=== PATIENT | female | born 1970 | race Caucasian/White ===

== ENCOUNTER 2025-02-22 11:56 | Outpatient (REF) | payer MEDICARE, MEDICAID, SELFPAY ==
--- OUTSIDE RECORDS SUMMARY | 2025-02-22 11:00 | XMS_ITS | Encounter Summary ---
Author Organization [facility] Address [address] 7[address] [place] [address] Care Team Providers Care Geodetic Computator Name Role Phone Martin Burch MD Primary Care Provider [phone] Reason for Referral * Imaging (Routine) - Pending Review Specialty Diagnoses / Procedures Referred By Contac t Referred To Contact Radiology Diagnoses Axillary mass, right Procedures BI US Breast Limited Right Martin Burch MD [address] [place] [address] Phone: tel: fax: [address] Phone: tel: fax: Referral ID Status Reason Start Date Expiration Date V isits Requested Visits Authorized [id number] Pending Review 02/22/2025 02/22/2026 1 1 * Imaging (Routine) - Pending Review Specialty Diagnoses / Procedures Referred By Contac t Referred To Contact Radiology Diagnoses Axillary mass, right Procedures BI Mammogram Diagnostic Tomosynthesis Bilateral Martin Burch MD [address] [place] [address] Phone: tel: fax: [address] Phone: tel: fax: Referral ID Status Reason Start Date Expiration Date V isits Requested Visits Authorized [id number] Pending Review 02/22/2025 02/22/2026 1 1 Reason for Visit * Reason Comments New patient visit Encounter Details Date Type Department Care Team (Late st Contact Info) Description 02/22/2025 11:00 AM EDT Office Visit [facility] [address] [place] [address] Name, MD Martin [address] [place] [address] Axillary mass, right (Primary Dx); Intellectual disability; Seizure disorder (CMS/HCC); Elevated blood pressure reading Social History Tobacco Use Types Packs/Day Years Used Date Smoking Tobacco: Never Smokeless Tobacco: Never Alcohol Use Standard Drinks/Week Comments Never 0 (1 standard drink = 0.6 oz pur e alcohol) Comments Unknown Sex and Gender Information Value Date Recorded Sex Assigned at Female 02/22/2025 10:57 AM EDT Legal Sex Female 10:53 AM EDT Gender Identity Female 02/22/2025 10:57 AM EDT Sexual Orientation Straight 02/22/2025 10 :57 AM EDT documented as of this encounter Last Filed Vital Signs Vital Sign Reading Time Taken Comments Blood Pressure 139/92 02/22/2025 11:18 AM EDT Pulse 76 02/22/2025 11:07 AM EDT Temperature 36.1 C (96.9 F) 02/22/2025 11:07 AM EDT Respiratory Rate 14 02/22/2025 11:07 AM EDT Oxygen Saturation 98% 02/22/2025 11:07 AM EDT Inhaled Oxygen Concentration - - Weight 92.6 kg (204 lb 3.2 oz) 02/22/2025 11:07 AM EDT Height 165.1 cm (5' 5 ) 02/22/2025 11:07 AM EDT Body Mass Index 33.98 02/22/2025 11:07 AM EDT documented in this encounter Progress Notes * Martin Burch MD - 02/22/2025 11:00 AM EDT Images from the original note were not included. Subjective Patient ID: Maria M Khalil is a 54 y.o. female who presents for New patient visit. Patient comes for the first time to the clinic. She is accompanied by her sister (Hanna Ruiz). She recently arrived from [place]. Patient has a past medical history of intellectual disability and seizure disorder. History is obtained from the sister. The patient depends on her family for all IADLs, she needs help with dressing and bathing, she is independent for eating, she is continent of urine and stool. The patient will be living with her sister from now on after her mother passed awayin [place]. She is currently treated with carbamazepine and phenobarbital for seizure disorder.Her sister explains to me that her seizures are very well-controlled on this medication regimen andshe has been seizure-free for several years. Today the patient blood pressure was initially elevated. Repeat blood pressure was much better. Her sister explains to me that patient has a right axillary mass for several years. This mass was diagnosed as a lipoma in [place] but she does not know what type of workup she had done. We do not have any information of recent mammograms We do not have any medical records Sister does not think patient had any surgeries in the past Review of Systems Constitutional: Negative for chills and fever. HENT: Negative for sore throat. Respiratory: Negative for cough, shortness of breath and wheezing. Cardiovascular: Negative for chest pain, palpitations and leg swelling. Gastrointestinal: Negative for abdominal pain. Neurological: See HPI Objective Vitals: 02/22/25 1107 02/22/25 1118 BP: (!) 153/104 (!) 139/92 BP Location: Left arm Patient Position: Sitting BP Cuff Size: Large adult Pulse: 76 Resp: 14 Temp: 96.9 ??F (36.1 ??C) TempSrc: Temporal SpO2: 98% Weight: 204 lb 3.2 oz (92.6 kg) Height: 5' 5 (1.651 m) Physical Exam Exam conducted with a project archivist present. Constitutional: Appearance: Normal appearance. Cardiovascular: Rate and Rhythm: Normal rate and regular rhythm. Heart sounds: No murmur heard. No gallop. Pulmonary: Effort: Pulmonary effort is normal. No respiratory distress. Breath sounds: Normal breath sounds. No wheezing. Chest: Breasts: Right: No swelling, bleeding, inverted nipple, mass, nipple discharge, skin change or tenderness. Left: No swelling, bleeding, inverted nipple, mass, nipple discharge, skin change or tenderness. Comments: Patient has right axillary soft mass on exam today about 2 inches in diameter Musculoskeletal: Right lower leg: No edema. Left lower leg: No edema. Neurological: Mental Status: She is alert. Mental status is at baseline. Motor: No weakness. Gait: Gait normal. Assessment/Plan Diagnoses and all orders for this visit: Axillary mass, right Comments: Lipoma?. I will send her for mammogram and ultrasound for evaluation. Further recommendation based on the results Orders: - BI Mammogram Diagnostic Tomosynthesis Bilateral; Future - BI US Breast Limited Right; Future Intellectual disability Comments: She has adequate level of supervision at home with her sister Seizure disorder (CMS/HCC) Comments: Continue current meds and check blood work listed below Sister will call when she needs refills We will also give her a new patient appt with me Orders: - CBC auto differential; Future - Comprehensive Metabolic Panel; Future - Carbamazepine, Total; Future - Phenobarbital; Future Elevated blood pressure reading Comments: Repeat BP is better. I did not recommend any meds for HTN for now Other orders - PHENobarbital 100 MG tablet; Take 1 tablet (100 mg) by mouth at bedtime. - carBAMazepine (TEGretol) 200 MG tablet; Take 1 tablet (200 mg) by mouth 3 times daily. Future Appointments Date Time Provider Department Center 04/12/2025 11:30 AM Martin Burch MD MEDICINE [facility] documented in this encounter Plan of Treatment Upcoming Encounters Date Type Department Care Team (Late st Contact Info) Description 04/12/2025 11:30 AM EDT Office Visit [facility] [address] [place] [address] Martin Burch MD [address] [place] [address] Scheduled Orders Name Type Priority Associated Diagnoses Orde r Schedule CBC auto differential Lab Routine Seizure disorder (CMS/HCC) Expected: 02/22/2025 (Approximate), Expires: 02/22/2026 Comprehensive Metabolic Panel Lab Routine Seizure disorder (CMS/HCC) Expected: 02/22/2025 (Approximate), Expires: 02/22/2026 Carbamazepine, Total Lab Routine Seizure disorder (CMS/HCC) Expected: 02/22/2025 (Approximate), Expires: 02/22/2026 Phenobarbital Lab Routine Seizure disorder (CMS/HCC) Expected: 02/22/2025 (Approximate), Expires: 02/22/2026 BI Mammogram Diagnostic Tomosynthesis Bilateral Imaging Routine Axillary mass, right Expected: 02/22/2025, Expires: 04/24/2026 BI US Breast Limited Right Imaging Routine Axillary mass, right Expected: 02/22/2025, Expires: 02/22/2026 documented as of this encounter Visit Diagnoses Diagnosis Axillary mass, right- Primary Intellectual disability Unspecified mental retardation Seizure disorder (CMS/HCC) Unspecified epilepsy without mention of intractable epilepsy Elevated blood pressure reading Elevated blood pressure reading without diagnosis of hypertension documented in this encounter Care Teams Geodetic Computator Relationship Specialty Start Date End Date Name, MD Martin [address] [place] [address] PCP - General Internal Medicine 02/22/25 documented as of this encounter
[2025-02-22 13:20] LABS: MANUAL DIFF FLAG NO
--- OUTSIDE RECORDS SUMMARY | 2025-02-22 13:21 | XMS_ITS | Clinical Summary ---
Author Organization [employer] Address [address] 7t [place] [address] Care Team Providers Care Biomedical Service Engineer Name Role Phone Name, Martin WHITMORE Primary Care Provider [phone] Allergies No known active allergies Medications PHENobarbital 100 MG tablet Take 1 tablet (100 mg) by mouth at bedtime. 02/22/2025 5 Active carBAMazepine (TEGretol) 200 MG tablet Take 1 tablet (200 mg) by mouth 3 times daily. 02/22/2025 6 Active Active Problems Problem Noted Date Diagnosed Date Intellectual disability 02/22/2025 Seizure disorder 02/22/2025 Encounters Date Type Department Care Team Description 02/22/2025 11:00 AM EDT Office Visit [facility] [address] [place] [address] Name, MD Martin Axillary mass, right (Primary Dx); Intellectual disability; Seizure disorder (CMS/HCC); Elevated blood pressure reading 02/22/2025 Travel from Last 3 Months Social History Tobacco Use Types Packs/Day Years [...] Orientation Straight 02/22/2025 10 :57 AM EDT Last Filed Vital Signs Vital Sign Reading [...] Mass Index 33.98 02/22/2025 11:07 AM EDT Plan of Treatment Upcoming Encounters Date Type Department Care Team (Late st Contact Info) Description 04/12/2025 11:30 AM EDT Office Visit [facility] MEDIC[facility] [address] [place] [address] Name, MD Martin [address] [place] [address] Health Maintenance Due Date Last Done Comments CT Colonography 1971 Colonoscopy 1971 Colorectal Cancer Screening 1971 Depression Screening 1971 FIT DNA/Cologuard 1971 FIT 1971 FOBT 1971 HIV Screening 1971 SDOH Screening 1971 Sigmoidoscopy 1971 Disability Screening 1971 Alcohol/Substance Use Screening 1983 Hepatitis C Screening 1989 DTaP/Tdap/Td Vaccines (1 - Tdap) 1990 Hepatitis B Vaccines (1 of 3 - 19+ 3-dose series) 1990 Pap Smear 1992 Cervical Cancer Screening 2001 HPV/Cotest 2001 Mammogram 2011 Pneumococcal Vaccine: 50+ Ye ars (1 of 1 - PCV) 2021 Zoster Vaccines (1 of 2) 2021 COVID-19 Vaccine (1 - 2023-2 5 season) 2025 Influenza Vaccine (#1) 2025 Tobacco Screening 02/22/2026 02/22/2025 RSV Patients and Pa tients Aged 60 years or older (1 - 1-dose 75+ series) 2046 HIB Vaccines Aged Out No longer eligi ble based on patient's age to complete this topic HPV Vaccines Aged Out No longer eligi ble based on patient's age to complete this topic Hepatitis A Vaccines Aged Out No long er eligible based on patient's age to complete this topic IPV Vaccines Aged Out No longer eligi ble based on patient's age to complete this topic Meningococcal B Vaccine Aged Out No l onger eligible based on patient's age to complete this topic Meningococcal Vaccine Aged Out No josh maciej eligible based on patient's age to complete this topic RSV under 20 months Aged Out No longe r eligible based on patient's age to complete this topic Rotavirus Vaccines Aged Out No longer eligible based on patient's age to complete this topic Insurance [facility] Care Teams Biomedical Service Engineer Relationship Specialty Start Date End Date Name, MD Martin [address] [place] [address] PCP - General Internal Medicine 02/22/25
--- OUTSIDE RECORDS SUMMARY | 2025-02-22 13:21 | XMS_ITS | Encounter Summary ---
Author Organization [facility] [facility] Address [address] [facility] 7t [place] [address] Care Team Providers Care Construction Administrator Name Role Phone Name, Martin WHITMORE Primary Care Provider [phone] Encounter Details Date Type Department Care Team (Latest Contact Info) Description 02/22/2025 Travel Social History Tobacco Use Types Packs/Day Years [...] AM EDT documented as of this encounter Plan of Treatment Upcoming Encounters Date Type Department Care Team (Late st Contact Info) Description 04/12/2025 11:30 AM EDT Office Visit [facility] [address] [place] [address] Name, MD Martni [address] [place] [address] documented as of this encounter Visit Diagnoses Not on filedocumented in this encounter Care Teams Construction Administrator Relationship Specialty Start Date End Date Name, MD Martin [address] [place] [address] PCP - General Internal Medicine 02/22/25 documented as of this encounter
[2025-02-22 13:27] LABS: Hematocrit 42.5 % (37.0-47.0); Hemoglobin 14.0 g/dl (12.0-16.0); Imm Gran Abs Auto 0.03 X10*3/uL (0.00-0.03); Imm Gran Pct Auto 0.4 % (0.0-0.4); Lymphocytes Absolute Auto 1.3 X10*3/uL (1.2-4.9); Mean Corpuscular HGB Conc 32.9 g/dl (31.0-35.0); Mean Corpuscular Hemoglobin 32.4 pg (27.0-33.0); Mean Corpuscular Volume 98.4 fL (80.0-98.0); NRBC Abs Auto 0.000 X10*3/uL (0.0-0.012); NRBC Pct Auto 0.0 /100WBC (0.0-0.2); Platelet Count 223 X10*3/uL (160-400); Red Blood Count 4.32 X10*6/uL (4.20-5.50); White Blood Count 7.5 X10*3/uL (4.8-10.8)
[2025-02-22 13:54] LABS: Carbamazepine Tegretol 8.1 mcg/mL (5.0-12.0)
[2025-02-22 14:45] LABS: Alanine Aminotransferase 19 U/L (0-31); Albumin Level 4.0 g/dL (3.5-5.0); Alkaline Phosphatase 89 U/L (39-117); Anion Gap 11 (12-20); Aspartate Amino Transferase 25 U/L (5-31); Blood Urea Nitrogen 11 mg/dL (9-16); Calcium 8.7 mg/dL (8.4-10.2); Carbon Dioxide 29 mmol/L (22-29); Chloride 102 mmol/L (96-108); Estimated Glomerular Filt Rate > 60; Potassium 4.4 mmol/L (3.3-5.1); Sodium 138 mmol/L (135-145); Total Protein 7.3 g/dL (6.5-8.0)
== END 2025-02-22 11:57 | disposition home or self-care (01) ==
LOC: HO.HHCL 11:56
PROVIDERS: PCP Internal Medicine Geriatric Medicine; Visit Provider Internal Medicine Geriatric Medicine
DX: G40.909 Epilepsy, unspecified, not intractable, without status epilepticus (principal)
CPT/HCPCS: 36415; 80053; 80156; 80184; 85025

== ENCOUNTER 2025-02-25 09:33 | Outpatient (REF) | payer MEDICAID, SELFPAY ==
--- OUTSIDE RECORDS SUMMARY | 2025-02-22 11:00 | XMS_ITS | Encounter Summary ---
Author Organization [employer] Address [address] [facility] 7t [place] [address] Care Team Providers Care Detail Assembler Name Role Phone Martin Burch MD Primary Care Provider [phone] Reason for Referral * Imaging (Routine) - Authorized Specialty Diagnoses / Procedures Referred By Contac t Referred To Contact Radiology Diagnoses Axillary mass, right Procedures BI US Breast Limited Right Martin Burch MD [address] [place] [address] Phone: tel: fax: [address] Phone: tel: fax: Referral ID Status Reason Start Date Expiration Date V isits Requested Visits Authorized [id number] Authorized 02/22/2025 02/22/2026 1 1 * Imaging (Routine) - Authorized Specialty Diagnoses / Procedures Referred By Contac t Referred To Contact Radiology Diagnoses Axillary mass, right Procedures BI Mammogram Diagnostic Tomosynthesis Bilateral Martin Burch MD [address] [place] [address] Phone: tel: fax: [address] Phone: tel: fax: Referral ID Status Reason Start Date Expiration Date V isits Requested Visits Authorized [id number] Authorized 02/22/2025 02/22/2026 1 1 Reason for Visit * Reason Comments New patient visit Encounter Details Date Type Department Care Team (Late st Contact Info) Description 02/22/2025 11:00 AM EDT Office Visit [facility] [address] [place] [address] Name, MD Martin [address] [place] [address] Axillary mass, right (Primary Dx); Intellectual disability; [...] sister (Hanna Ruiz). She recently arrived from [place]. Patient has a past medical history of intellectual disability and seizure disorder. History is obtained from the sister. The patient depends on her family for all IADLs, she needs help with dressing and bathing, she is independent for eating, she is continent of urine and stool. The patient will be living with her sister from now on after her mother passed awayin [place]. She is currently treated with carbamazepine and [...] mass was diagnosed as a lipoma in [place] but she does not know what type [...] m) Physical Exam Exam conducted with a center machine set up operator present. Constitutional: Appearance: Normal appearance. Cardiovascular: Rate [...] at home with her sister Seizure disorder ([facility]) Comments: Continue current meds and check blood [...] 04/12/2025 11:30 AM Martin Burch MD MEDICINE [facility] documented in this encounter Plan of Treatment Upcoming Encounters Date Type Department Care Team (Late st Contact Info) Description 04/12/2025 11:30 AM EDT Office Visit [facility] MEDICINE [address] [place] [address] Martni Burch MD [address] [place] [address] Scheduled Orders Name Type Priority Associated Diagnoses Orde r Schedule BI Mammogram Diagnostic Tomosynthesis Bilateral Imaging Routine Axillary mass, right Expected: 02/22/2025, Expires: 04/24/2026 BI US Breast Limited Right Imaging Routine Axillary mass, right Expected: 02/22/2025, Expires: 02/22/2026 documented as of this encounter Procedures Procedure Name Priority Date/Time Associated Diagnosis Comments CBC WITH AUTO DIFFERENTIAL Routine 02/22/2025 12:25 PM EDT Seizure disorder (CMS/HCC) PHENOBARBITAL Routine 02/22/2025 12:25 PM EDT Seizure disorder (CMS/HCC) CARBAMAZEPINE, TOTAL Routine 02/22/2025 12:25 PM EDT Seizure disorder (CMS/HCC) COMPREHENSIVE METABOLIC PANEL Routine 02/22/2025 12:25 PM EDT Seizure disorder (CMS/HCC) documented in this encounter Results * Phenobarbital (02/22/2025 12:25 PM EDT) Phenobarbital 22.3 10.0 - 40.0 mcg/mL [facility] Blood Venous blood specimen / Unknown 02/22/2025 12:25 PM EDT 02/22/2025 12:47 PM EDT us Martin Burch MD LAB BLOOD ORDERABLES Final Resul t Performing Organization Address City/[facility]/ZIP Co de Phone Number [facility] [address] [place] [address] [phone] * Carbamazepine, Total (02/22/2025 12:25 PM EDT) Carbamazepine Tegretol 8.1 5.0 - 12.0 mcg/mL [facility] Blood Venous blood specimen / Unknown 02/22/2025 12:25 PM EDT 02/22/2025 12:47 PM EDT us Martin Burch MD LAB BLOOD ORDERABLES Final Resul t Performing Organization Address City/[facility]/ZIP Co de Phone Number [facility] [address] [place] [phone] * (ABNORMAL) Comprehensive Metabolic Panel (02/22/2025 12:25 PM EDT) Sodium 138 135 - 145 mmol/L [facility] Potassium 4.4 3.3 - 5.1 mmol/L [facility] Chloride 102 96 - 108 mmol/L [facility] Carbon Dioxide 29 22 - 29 mmol/L [facility] Anion Gap 11(L) 12 - 20 [facility] Urea Nitrogen (BUN) 11 9 - 16 mg/dL [facility] Creatinine, Serum 0.70 0.5 - 1.4 mg/dL [facility] Estimated Glomerular Filt Rate >60 [facility] Comment:Chronic Kidney Disea se: Estimated GFR < 60 mL/min/1.33k9Tlmbbb Kidney Disease: Estimated GFR < 15 mL/min/1.73m2 Glucose 100 60 - 115 mg/dL [facility] Calcium 8.7 8.4 - 10.2 mg/dL [facility] Bilirubin, Total 0.2 0.0 - 1.0 mg/dL [facility] Aspartate Amino Transferase 25 5 - 31 U/L [facility] Alanine Aminotransferase 19 0 - 31 U/L [facility] Total Protein 7.3 6.5 - 8.0 g/dL [facility] Albumin Level 4.0 3.5 - 5.0 g/dL [facility] Alkaline Phosphatase 89 39 - 117 U/L [facility] Blood Venous blood specimen / Unknown 02/22/2025 12:25 PM EDT 02/22/2025 1:18 PM EDT us Martin Name LAB BLOOD ORDERABLES Final Resul t [facility] [address] [place] [phone] * (ABNORMAL) CBC auto differential (02/22/2025 12:25 PM EDT) Pathologist [facility] White Blood Count 7.5 4.8 - 10.8 X10*3/uL [facility] Red Blood Count 4.32 4.20 - 5.50 X10*6/uL [facility] Hemoglobin 14.0 12.0 - 16.0 g/dl [facility] Hematocrit 42.5 37.0 - 47.0 % [facility] Mean Corpuscular Volume 98.4(H) 80.0 - 98.0 fL [facility] Mean Corpuscular Hemoglobin 32.4 27.0 - 33.0 pg [facility] Mean Corpuscular HGB Conc 32.9 31.0 - 35.0 g/dl [facility] Red Cell Distribution Width 12.8 11.0 - 16.0 % [facility] Platelet Count 223 160 - 400 X10*3/uL [facility] Mean Platelet Volume 11.1 9.4 - 12.3 fL [facility] Neutrophils Percent Auto 74.9(H) 45 - 73 % [facility] Imm Gran Pct Auto 0.4 0.0 - 0.4 % [facility] Lymphocytes Percent Auto 17.3(L) 20 - 40 % [facility] Monocytes Percent Auto 7.3 2 - 11 % [facility] Eosinophils Percent Auto 0.0 0 - 4 % [facility] Basophils Percent Auto 0.1 0 - 2 % [facility] NRBC Pct Auto 0.0 0.0 - 0.2 /100WBC [facility] Neutrophils Absolute Auto 5.6 2.0 - 8.3 x10*3/uL [facility] Imm Gran Abs Auto 0.03 0.00 - 0.03 X10*3/uL [facility] Lymphocytes Absolute Auto 1.3 1.2 - 4.9 X10*3/uL [facility] Monocytes Absolute Auto 0.6 0.1 - 1.2 X10*3/uL [facility] Eosinophils Absolute Auto 0.0 0.0 - 0.4 X10*3/uL [facility] Basophils Absolute Auto 0.0 0.0 - 0.2 X10*3/uL [facility] NRBC Abs Auto 0.000 0.0 - 0.012 X10*3/uL [facility] Blood Venous blood specimen / Unknown 02/22/2025 12:25 PM EDT 02/22/2025 1:17 PM EDT Martin Burch MD LAB BLOOD ORDERABLES Final Resul t [facility] [address] [place] [phone] documented in this encounter Visit Diagnoses Diagnosis Axillary mass, right- Primary Intellectual disability Unspecified mental retardation Seizure disorder (CMS/HCC) Unspecified epilepsy without mention of intractable epilepsy Elevated blood pressure reading Elevated blood pressure reading without diagnosis of hypertension documented in this encounter Care Teams Detail Assembler Relationship Specialty Start Date End Date Name, MD Martin [address] [place] [address] PCP - General Internal Medicine 02/22/25 documented as of this encounter
--- NOTE | ~2025-02-25 | MM_ITS ---
EXAMINATION (S): 1. MM DIAGNOSTIC DIGITAL BREAST TOMOSYNTHESIS, BILATERAL 2. US BREAST LIMITED RIGHT CLINICAL INFORMATION: Right axillary mass COMPARISON: None. This is a baseline study. TECHNIQUE: Digital breast tomosynthesis is performed in both the mediolateral oblique and craniocaudal views along with computer-aided detection (CAD). Synthesized 2D images are generated from the tomosynthesis. Spot compression tomosynthesis images were also obtained. BB marker and a triangular skin marker were placed in the right axilla, indicating the location of the lump/pain as directed by the patient. FINDINGS: BREAST COMPOSITION: There are scattered areas of fibroglandular density (ACR BI-RADS breast composition Category b). RIGHT BREAST: Focal asymmetry in the subareolar region is pliable with spot compression. No significant masses or suspicious calcifications are seen. In particular, no suspicious mammographic findings adjacent to the skin markers in the right axilla. Targeted ultrasound of the right breast was performed at the location of the palpable concern in the axilla. No suspicious mammographic is seen during the survey. Targeted ultrasound of the right breast was performed at the location of the mammographic finding. The survey throughout the 4:00-8:00 axis did not reveal suspicious sonographic findings. LEFT BREAST: No significant masses, suspicious calcifications or other abnormalities are seen. MM/MM tomosynthesis diagnostic BI IMPRESSION: RIGHT BREAST: Negative, no evidence of malignancy. In particular, no suspicious mammographic or sonographic findings to accounts for patient's palpable concern in the right axilla. Clinical follow-up is recommended. Otherwise, normal interval follow-up mammogram is recommended in 12 months. LEFT BREAST: Negative, no mammographic evidence of malignancy. Normal interval follow-up is recommended in 12 months. ASSESSMENT: BI-RADS 0 - Incomplete: Needs additional Imaging. RECOMMENDATION: 1. Patient should be managed based on the clinical impression. 2. Otherwise, routine annual screening mammography. Results were provided to the patient at time of visit by the technologist. This patient's information was entered into a reminder system with a target due date for their next mammogram. Electronically signed by: Charli Henderson MD 02/25/2025 01:15 PM EDT
--- OUTSIDE RECORDS SUMMARY | 2025-02-25 10:14 | XMS_ITS | Encounter Summary ---
Author Organization [employer] Address [address] [facility] 7t [place] [address] Care Team Providers Care Asbestos Abatement Worker Name Role Phone Name, Martin WHITMORE Primary Care Provider [phone] Encounter Details Date Type Department Care Team [...] Description 04/12/2025 11:30 AM EDT Office Visit [facility] MEDICINE [address] [place] [address] NameMartin MD [address] [place] [address] documented as of this encounter Visit Diagnoses Not on filedocumented in this encounter Care Teams Asbestos Abatement Worker Relationship Specialty Start Date End Date Martin Burch MD [address] [place] [address] PCP - General Internal Medicine 02/22/25 documented as of this encounter
--- OUTSIDE RECORDS SUMMARY | 2025-02-25 10:14 | XMS_ITS | Encounter Summary ---
Author Organization [employer] Address [address] [place] [address] Care Team Providers Care Residential Roofer Name Role Phone Name, Martin WHITMORE Primary Care Provider [phone] Reason for Visit * Reason Onset Date Comments requesting call back 02/23/2025 Med Refill 02/23/2025 Pt requesting me ds to be sent to [facility] pharmacy phenobarbital and tegretol. Pt went to pharmacy to see if meds were ready theres no medications in the pharmacy Encounter Details Date Type Department Care Team (Late st Contact Info) Description 02/23/2025 Refill [facility] MEDICINE [address] [place], [place] [phone] Name, MD Martin [address] [place] [address] Social History Tobacco Use Types Packs/Day Years [...] AM EDT documented as of this encounter Miscellaneous Notes * Telephone Encounter - Crystal Parkinson RN - 02/24/2025 10:46 AM EDT Pt arrived to help desk engineer to let them know the script that was sent by PCP was not received by [facility] pharmacy. They're requesting for the PCP to resend the script again. Tc to pt via BLS ID: [id number], no answer, lvm to return call and ask to speak to blue team nurses. Tc to pt without mosaic layer services pt sister answered, requesting an mosaic layer, namibian translation assisted by PCP HUEY Miramontes [place]. PCP okay with prescribing a 30 day supply to pt until they're seen for their FOOD MIXER appt withPCP on 04/12/25. Medications pended to PCP for review. * Telephone Encounter - Leanne Marsh - 02/24/2025 9:10 AM EDT Pt requesting meds to be sent to [facility] pharmacy phenobarbital and tegretol. Pt went to pharmacy to see if meds were ready theres no medications in the pharmacy * Telephone Encounter - Martin Holland - 02/23/2025 3:01 PM EDT Tc from pt reporting that she had a missed call from [facility]. Pt does not know who. Contact pt at [phone] documented in this encounter Plan of Treatment Upcoming Encounters Date Type Department Care Team (Late st Contact Info) Description 04/12/2025 11:30 AM EDT Office Visit [facility] MEDICINE [address] [place] [phone] Name, MD Martin [address] [place] [address] documented as of this encounter Visit Diagnoses Not on filedocumented in this encounter Care Teams Residential Roofer Relationship Specialty Start Date End Date NameMartin MD [address] [place] [phone] PCP - General Internal Medicine 02/22/25 documented as of this encounter
--- OUTSIDE RECORDS SUMMARY | 2025-02-25 10:15 | XMS_ITS | Clinical Summary ---
Author Organization [employer] Address [address] [facility] [address] [place] [address] Care Team Providers Care Banquet Server Name Role Phone Name, Martin WHITMORE Primary Care Provider [phone] Allergies No known active allergies Medications carBAMazepine (TEGretol) 200 MG tablet Take 1 tablet (200 mg) by mouth 3 times daily. 90 tablet 5 025 Active PHENobarbital 100 MG tablet Take 1 tablet (100 mg) by mouth at bedtime. 30 tablet 5 025 Active PHENobarbital 100 MG tablet Take 1 tablet (100 mg) by mouth at bedtime. 5 025 Discontinued(Re order (will not trigger notification to Pharmacy)) carBAMazepine (TEGretol) 200 MG tablet Take 1 tablet (200 mg) by mouth 3 times daily. 5 025 Discontinued(Re order (will not trigger notification to Pharmacy)) Active Problems Problem Noted Date Diagnosed Date Intellectual disability 02/22/2025 Seizure disorder 02/22/2025 Encounters Date Type Department Care Team Description 02/23/[address] [facility] [address] [place] [address] NameMartin MD 02/22/2025 11:00 AM EDT Office Visit [facility] [address] [place], [place] [phone] NameMartin MD Axillary mass, right (Primary Dx); Intellectual disability; [...] Description 04/12/2025 11:30 AM EDT Office Visit [facility] [address] [place] [phone] Name, MD Martin [address] [place] [phone] Health Maintenance Due Date Last Done Comments [...] on patient's age to complete this topic Procedures Procedure Name Priority Date/Time Associated Diagnosis Comments PHENOBARBITAL Routine 02/22/2025 12:25 PM EDT Seizure disorder (CMS/HCC) CARBAMAZEPINE, TOTAL Routine 02/22/2025 12:25 PM EDT Seizure disorder (CMS/HCC) COMPREHENSIVE METABOLIC PANEL Routine 02/22/2025 12:25 PM EDT Seizure disorder (CMS/HCC) CBC WITH AUTO DIFFERENTIAL Routine 02/22/2025 12:25 PM EDT Seizure disorder (CMS/HCC) from Last 3 Months Results * (ABNORMAL) CBC auto differential (02/22/2025 12:25 PM EDT) White Blood Count 7.5 4.8 - 10.8 X10*3/uL [facility] Red Blood Count 4.32 4.20 - 5.50 X10*6/uL [facility] Hemoglobin 14.0 12.0 - 16.0 g/dl [facility] Hematocrit 42.5 37.0 - 47.0 % [facility] Mean Corpuscular Volume 98.4(H) 80.0 - 98.0 fL [facility] Mean Corpuscular Hemoglobin 32.4 27.0 - 33.0 pg [facility] Mean Corpuscular HGB Conc 32.9 31.0 - 35.0 g/dl [facility] Red Cell Distribution Width 12.8 11.0 - 16.0 % [facility] Platelet Count 223 160 - 400 X10*3/uL [facility] Mean Platelet Volume 11.1 9.4 - 12.3 fL [facility] Neutrophils Percent Auto 74.9(H) 45 - 73 % [facility] Imm Gran Pct Auto 0.4 0.0 - 0.4 % [facility] Lymphocytes Percent Auto 17.3(L) 20 - 40 % [facility] Monocytes Percent Auto 7.3 2 - 11 % [facility] Eosinophils Percent Auto 0.0 0 - 4 % [facility] Basophils Percent Auto 0.1 0 - 2 % [facility] NRBC Pct Auto 0.0 0.0 - 0.2 /100WBC [facility] Neutrophils Absolute Auto 5.6 2.0 - 8.3 x10*3/uL [facility] Imm Gran Abs Auto 0.03 0.00 - 0.03 X10*3/uL [facility] Lymphocytes Absolute Auto 1.3 1.2 - 4.9 X10*3/uL [facility] Monocytes Absolute Auto 0.6 0.1 - 1.2 X10*3/uL [facility] Eosinophils Absolute Auto 0.0 0.0 - 0.4 X10*3/uL [facility] Basophils Absolute Auto 0.0 0.0 - 0.2 X10*3/uL [facility] NRBC Abs Auto 0.000 0.0 - 0.012 X10*3/uL [facility] Blood Venous blood specimen / Unknown 02/22/2025 12:25 PM EDT 02/22/2025 1:17 PM EDT us Martin Burch MD LAB BLOOD ORDERABLES Final Resul t Performing Organization Address [facility] Co de Phone Number [facility] [address] [place] [phone] * Phenobarbital (02/22/2025 12:25 PM EDT) Pathologist [facility] Phenobarbital 22.3 10.0 - 40.0 mcg/mL [facility] Blood Venous blood specimen / Unknown 02/22/2025 12:25 PM EDT 02/22/2025 12:47 PM EDT us Martin Burch MD LAB BLOOD ORDERABLES Final Resul t Performing Organization Address [facility] Co de Phone Number [facility] [address] [place] [phone] * Carbamazepine, Total (02/22/2025 12:25 PM EDT) Pathologist [facility] Carbamazepine Tegretol 8.1 5.0 - 12.0 mcg/mL [facility] Blood Venous blood specimen / Unknown 02/22/2025 12:25 PM EDT 02/22/2025 12:47 PM EDT us Martin Burch MD LAB BLOOD ORDERABLES Final Resul t Performing Organization Address [facility] de Phone Number [facility] [address] [place] [phone] * (ABNORMAL) Comprehensive Metabolic Panel (02/22/2025 12:25 PM EDT) Pathologist [facility] Sodium 138 135 - 145 mmol/L [facility] Potassium 4.4 3.3 - 5.1 mmol/L [facility] Chloride 102 96 - 108 mmol/L [facility] Carbon Dioxide 29 22 - 29 mmol/L [facility] Anion Gap 11(L) 12 - 20 [facility] Urea Nitrogen (BUN) 11 9 - 16 mg/dL [facility] Creatinine, Serum 0.70 0.5 - 1.4 mg/dL [facility] Estimated Glomerular Filt Rate >60 [facility] Comment:Chronic Kidney Disea se: Estimated GFR < 60 mL/min/[id number] Kidney Disease: Estimated GFR < 15 mL/min/1.73m2 Glucose 100 60 - 115 mg/dL [facility] Calcium 8.7 8.4 - 10.2 mg/dL [facility] Bilirubin, Total 0.2 0.0 - 1.0 mg/dL [facility] Aspartate Amino Transferase 25 5 - 31 U/L [facility] Alanine Aminotransferase 19 0 - 31 U/L [facility] Total Protein 7.3 6.5 - 8.0 g/dL [facility] Albumin Level 4.0 3.5 - 5.0 g/dL [facility] Alkaline Phosphatase 89 39 - 117 U/L [facility] Blood Venous blood specimen / Unknown 02/22/2025 12:25 PM EDT 02/22/2025 1:18 PM EDT us Martin Name LAB BLOOD ORDERABLES Final Resul t [facility] [address] [place], [place] [phone] from Last [address] [place] [address] [place] [address] STANDARD Care Teams Banquet Server Relationship Specialty Start Date End Date Name, MD Martin [address] [place] [address] PCP - General Internal Medicine 02/22/25
== END 2025-02-25 09:34 | disposition home or self-care (01) ==
LOC: HO.MAMMO 09:33
PROVIDERS: PCP Internal Medicine Geriatric Medicine; Visit Provider Internal Medicine Geriatric Medicine
DX: R22.31 Localized swelling, mass and lump, right upper limb (principal)
CPT/HCPCS: 76642; 77062; 77066

== ENCOUNTER → 2025-02-25 10:00 | Outpatient (BNV) | payer MEDICAID, SELFPAY | PROVIDERS: PCP Internal Medicine Geriatric Medicine; Visit Provider Radiology Body Imaging | DX: N63.31 Unspecified lump in axillary tail of the right breast (principal) | CPT/HCPCS: 76642; 77062; 77066 ==

== ENCOUNTER 2025-03-03 12:14 | Emergency (ER) | payer MEDICARE, MEDICAID, SELFPAY ==
--- NOTE | ~2025-03-03 | XR_ITS ---
EXAMINATION: XR CHEST CLINICAL INFORMATION: chest pain COMPARISON: None available. TECHNIQUE: 2 views of the chest were obtained. FINDINGS: No significant abnormality is noted involving the heart, lungs, mediastinum, bony thorax or soft tissues. XR/XR chest 2V IMPRESSION: No acute disease. Electronically signed by: Pedro Pablo Ramos MD 03/03/2025 02:35 PM EDT RP
--- NOTE | ~2025-03-03 | CT_ITS ---
EXAMINATION: CT HEAD WITHOUT CONTRAST CLINICAL INFORMATION: Trauma, swelling posterior to the left mastoid COMPARISON: None available. TECHNIQUE: Contiguous axial imaging was performed from the skull base to vertex without intravenous administration of contrast. This CT examination was performed using dose optimization techniques as appropriate, variously including the following: *Automated exposure control *Adjustment of mA and/or kV according to patient size (this includes techniques or standardized protocols for targeted exams where dose is matched to indication/reason for exam; i.e. extremities or head) *Use of iterative reconstruction technique DLP: A 4 mGY*cm FINDINGS: There is no acute ischemic change. There is no intracranial hemorrhage. There is no mass-effect or midline shift. Basal cisterns and ventricles are within normal limits for age/cerebral volume. The right globe is mildly rotated laterally relative to the left. There is a small mucous retention cyst or less likely a polyp in the right frontal sinus. Foamy appearing opacity is present in the right maxillary sinus. There are no bony abnormalities. CT/CT head/brain wo IV con IMPRESSION: No acute intracranial abnormality. There is a small mucous retention cyst or less likely a polyp in the right frontal sinus. 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 Asymmetric lateral gaze of the right globe. Electronically signed by: Pedro Pablo Ramos MD 03/03/2025 03:55 PM EDT
[2025-03-03 12:26] VITALS: BP 160/90; PULSE 92; O2SAT 100
--- NOTE | 2025-03-03 12:28 | ECG_ITS ---
Test Reason : SYNCOPE Blood Pressure : */* mmHG Vent. Rate : 92 BPM Atrial Rate : 92 BPM P-R Int : 130 ms QRS Dur : 76 ms QT Int : 338 ms P-R-T Axes : 60 -3 -11 degrees QTcB Int : 417 ms Normal sinus rhythm Possible Inferior infarct , age undetermined Cannot rule out Anterior infarct , age undetermined Abnormal ECG No previous ECGs available Referred By: Gregorio Tomlin Electronically Signed By: SHAW FULLER MD
[2025-03-03 12:39] VITALS: BP 133/66; PULSE 94; RESP 16; TEMP 37.2; O2SAT 97; BMI 34.1
--- NOTE | 2025-03-03 12:55 | ED_ITS ---
[facility] - General Adult General Chief complaint: Syncope Stated complaint: syncopy, neg LOC Time Seen by Provider: 03/03/25 12:25 Source: patient Mode of arrival: ambulatory Limitations: language barrier History of Present Illness ED Provider: Dr. Bolivar [facility] narrative: This is a 54-year-old female history of intellectual disability, epilepsy on carbamazepine 200 mg 3 times a day, presented hospital today for evaluation of a syncopal episode. Patient's mother was able to provide a medical history as stated that patient was at a store when she has sudden on syncopal episode. Patient did pass out briefly and returned back to baseline behavior. They went to the clinic and saw the doctor. They did an EKG and they were concerned about some cardiac changes. Patient was sent to the ER for further evaluation. Mom stated that patient was not complain of chest pain however she does have some discomfort in her left shoulder that has been going on for a month. Denies any shortness of breath, hemoptysis denies any history of hormonal use, patient does not have any history of history of diabetes hypertension no direct family cardiac history, she does not smoke. Related Data Allergies Allergy/AdvReac Type Severity Reaction Status Date / Time No Known Allergies Allergy Verified 03/03/25 12:41 Review of Systems 2 Review of Systems: Pertinent review of systems as mentioned in HPI. All other system otherwise negative. [facility] Past Medical History [facility] Narrative: Medical history as mentioned in [facility] Social History Social History Advance Directives: No Advance Directives Information Provided: Yes Physical Exam ED Exam Exam: General: Pleasant, no distress, interacting appropriately Head: Normacephalic, atraumatic ENT: oral mucosa moist, neck supple, no tracheal deviation Cardiovascular: regular rate, regular rhythm, no murmurs, rubbing, gallops Respiratory: CTAB, no wheeze, rales, rhonchi Gastrointestinal: Soft, non distended, non tender, non guarding Extremities: No limb pain or swelling, no calf tenderness Neurological: Awake and alert, no facial droop noted Skin: Warm and dry Psychiatric: Appropriate mood and thoughts Vital Signs: Vital Signs - 24 hr 03/03/25 12:39 Temperature 98.9 F Pulse Rate 94 Respiratory Rate 16 Blood Pressure 133/66 Pulse Oximetry 97 Oxygen Delivery Method Room Air BMI result Body Mass Index 34.1 Medications Administered Discontinued Medications Generic Name Dose Route Start Last Admin Trade Name Freq PRN Reason Stop Dose Admin Sodium Chloride 1,000 mls @ 999 mls/hr 03/03/25 13:00 03/03/25 15:20 Ns IV 03/03/25 14:00 Infused .[id number] [id number] Infusion Medical Decision Making Medical Decision Making [facility] Narrative: 54-year-old female history of intellectual disability, epilepsy presented hospital today for a syncopal episode. We will obtain a screening EKG at this time we will obtain cardiac workup. Including CBC chemistry troponin. I did review patient's EKG no sign of STEMI on my examination. We will obtain a chest x-ray as well. We will continue to observe the patient here. We had a bolus IV fluid will be provided. Patient's sugar was normal in the field . No concern of head injury. Mom denies any head injury on the patient during this syncopal episode. Given the fact that patient did come back briefly after syncope episode I do not think this is seizure in nature. Patient's CBC is unremarkable, patient chemistries unremarkable, troponins negative here. Patient's CT head and chest x-ray did not show any signs of acute injuries. Patient's CT head did have incidental finding of mucosa sinus cyst this withpatient mom and patient. We will plan to discharge patient at this time. Differential Diagnosis Differential Diagnoses: The differential diagnosis associated with the presentation includes Cardiac arrhythmia, STEMI, syncopal episode, breakthrough seizures Lab Data [facility] Lab Attestation statement: I reviewed the patient's lab results. 03/03/25 13:13 03/03/25 13:13 Labs: Lab Results 03/03/25 Range/Units 13:13 WBC 8.5 (4.8-10.8) X10*3/uL RBC 4.23 (4.20-5.50) X10*6/uL Hgb 14.0 (12.0-16.0) g/dl Hct 40.6 (37.0-47.0) % MCV 96.0 (80.0-98.0) fL MCH 33.1 H (27.0-33.0) pg MCHC 34.5 (31.0-35.0) g/dl RDW 12.8 (11.0-16.0) % Plt Count 220 (160-400) X10*3/uL MPV 10.3 (9.4-12.3) fL Immature Gran % (Auto) 0.2 (0.0-0.4) % Neut % (Auto) 80.9 H (45-73) % Lymph % (Auto) 12.1 L (20-40) % [place] % (Auto) 6.7 (2-11) % Eos % (Auto) 0.0 (0-4) % Baso % (Auto) 0.1 (0-2) % Lymph # (Auto) 1.0 L (1.2-4.9) X10*3/uL [place] # (Auto) 0.6 (0.1-1.2) X10*3/uL Eos # (Auto) 0.0 (0.0-0.4) X10*3/uL Baso # (Auto) 0.0 (0.0-0.2) X10*3/uL Abs Immat Gran (auto) 0.02 (0.00-0.03) X10*3/uL Absolute Neuts (auto) 6.9 (2.0-8.3) x10*3/uL Absolute Nucleated RBC 0.000 (0.0-0.012) X10*3/uL Nucleated RBC % (auto) 0.0 (0.0-0.2) /100WBC Sodium 139 (135-145) mmol/L Potassium 4.7 (3.3-5.1) mmol/L Chloride 102 (96-108) mmol/L Carbon Dioxide 33 H (22-29) mmol/L Anion Gap 9 L (12-20) BUN 10 (9-16) mg/dL Creatinine 0.71 (0.5-1.4) mg/dL Estim Creat Clear Calc 103.3 Estimated GFR > 60 Random Glucose 113 (60-115) mg/dL Calcium 8.8 (8.4-10.2) mg/dL Total Bilirubin 0.2 (0.0-1.0) mg/dL AST 23 (5-31) U/L ALT 20 (0-31) U/L Alkaline Phosphatase 86 (39-117) U/L Troponin I High Sens 8.8 (<3.5-17.0) ng/L Total Protein 7.2 (6.5-8.0) g/dL Albumin 4.0 (3.5-5.0) g/dL Independent Interpretation I performed an independent interpretation of an: Plain X-Ray and CT Scan Radiology Impression Discussion of test interpretation with radiology: I have reviewed the radiologist's reading. Discharge Plan Discharge Clinical Impression: Syncope Qualifiers: Syncope type: unspecified Qualified Code(s): R55 - Syncope and collapse Patient Disposition: Home, Self-Care Instructions: Syncope (ED) Additional Instructions: Please follow up with PCP for her syncopal episode. I do not see any concernings EKG changes. Her cardiaz enzymes here is negative. Print Language: Jordanian
[2025-03-03 13:18] LABS: MANUAL DIFF FLAG NO
[2025-03-03 13:20] LABS: Hematocrit 40.6 % (37.0-47.0); Hemoglobin 14.0 g/dl (12.0-16.0); Imm Gran Abs Auto 0.02 X10*3/uL (0.00-0.03); Imm Gran Pct Auto 0.2 % (0.0-0.4); Lymphocytes Absolute Auto 1.0 X10*3/uL (1.2-4.9); Mean Corpuscular HGB Conc 34.5 g/dl (31.0-35.0); Mean Corpuscular Hemoglobin 33.1 pg (27.0-33.0); Mean Corpuscular Volume 96.0 fL (80.0-98.0); NRBC Abs Auto 0.000 X10*3/uL (0.0-0.012); NRBC Pct Auto 0.0 /100WBC (0.0-0.2); Platelet Count 220 X10*3/uL (160-400); Red Blood Count 4.23 X10*6/uL (4.20-5.50); White Blood Count 8.5 X10*3/uL (4.8-10.8)
[2025-03-03 13:35] LABS: Alanine Aminotransferase 20 U/L (0-31); Albumin Level 4.0 g/dL (3.5-5.0); Alkaline Phosphatase 86 U/L (39-117); Anion Gap 9 (12-20); Aspartate Amino Transferase 23 U/L (5-31); Blood Urea Nitrogen 10 mg/dL (9-16); Calcium 8.8 mg/dL (8.4-10.2); Carbon Dioxide 33 mmol/L (22-29); Chloride 102 mmol/L (96-108); Creatinine Clr Calc Pharmacy 103.3; Estimated Glomerular Filt Rate > 60; Potassium 4.7 mmol/L (3.3-5.1); Sodium 139 mmol/L (135-145); Total Protein 7.2 g/dL (6.5-8.0)
[2025-03-03 13:41] LABS: Troponin-I High Sensitivity 8.8 ng/L (<3.5-17.0)
--- NOTE | 2025-03-03 14:04 | PC.NURSE ---
Pt ambulated to bathroom, steady gait to and from BR. Denies any dizziness at this time. #20 placed in R AC, IVF infusing per MAR.
[2025-03-03 18:07] VITALS: BP 156/74; PULSE 96; RESP 18; TEMP 36.7; O2SAT 96
== END 2025-03-03 18:10 | disposition home or self-care (01) ==
PROVIDERS: Emergency Provider Student in an Organized Health Care Education/Training Program; PCP Internal Medicine Geriatric Medicine
DX: R55 Syncope and collapse (principal); R07.89 Other chest pain; R11.0 Nausea; M25.512 Pain in left shoulder; Z79.899 Other long term (current) drug therapy
CPT/HCPCS: 36415; 70450; 71046; 80053; 84484; 85025; 93005; 96360; 96361; 99283; 99284

== ENCOUNTER → 2025-03-03 12:28 | Outpatient (BNV) | payer MEDICAID, SELFPAY | PROVIDERS: Emergency Provider Student in an Organized Health Care Education/Training Program; PCP Internal Medicine Geriatric Medicine; Visit Provider Internal Medicine Cardiovascular Disease | DX: R94.31 Abnormal electrocardiogram [ECG] [EKG] (principal); R55 Syncope and collapse | CPT/HCPCS: 93010 ==

== ENCOUNTER → 2025-03-03 13:11 | Outpatient (BNV) | payer MEDICAID, SELFPAY | PROVIDERS: Emergency Provider Student in an Organized Health Care Education/Training Program; PCP Internal Medicine Geriatric Medicine; Visit Provider Radiology Diagnostic Radiology | DX: R55 Syncope and collapse (principal); R07.9 Chest pain, unspecified | CPT/HCPCS: 70450; 71046 ==

== ENCOUNTER → 2025-03-17 07:48 | Outpatient (BNV) | payer MEDICARE, MEDICAID, SELFPAY | PROVIDERS: PCP Internal Medicine Geriatric Medicine; Visit Provider Radiology Vascular & Interventional Radiology | DX: G93.89 Other specified disorders of brain (principal) | CPT/HCPCS: 70551 ==

== ENCOUNTER 2025-03-17 08:03 | Outpatient (REF) | payer MEDICARE, MEDICAID, SELFPAY ==
--- OUTSIDE RECORDS SUMMARY | 2025-03-14 08:40 | XMS_ITS | Encounter Summary ---
Author Organization [employer] Address [address] [facility] [address] [place] [address] Care Team Providers Care Fisher Trap Name Role Phone Name, Martin WHITMORE Primary Care Provider [phone] Reason for Referral * Consultation (Urgent) - Authorized Specialty Diagnoses / Procedures Referred By Contac t Referred To Contact Neurology Diagnoses Coarse tremors Donna Hassan MD [address] [place] [address] Phone: tel: fax: [facility] [address] [place] [address] [address] [place] [address] Phone: tel: fax: Referral ID Status Reason Start Date Expiration Date Visits Requested Visits Authorized [id number] Authorized Specialty Services Required 03/14/2025 03/14/2026 6 6 Reason for Visit * Reason Comments Hypertension Encounter Details Date Type Department Care Team (Late st Contact Info) Description 03/14/2025 8:40 AM EDT Office Visit [facility] [address] [place] [address] Donna Hassan MD [address] [place], [place] [phone] Seizure disorder (CMS/HCC) (Primary Dx); Elevated BP without diagnosis of hypertension; Coarse tremors Social History Tobacco Use Types Packs/Day Years Used Date Smoking Tobacco: Never Smokeless Tobacco: Never Tobacco Cessation:Counseling Given: Not Answered Alcohol Use Standard Drinks/Week Comments Never 0 [...] Sign Reading Time Taken Comments Blood Pressure 132/89 03/14/2025 8:42 AM EDT Pulse 90 03/14/2025 8:42 AM EDT Temperature 36.6 C (97.8 F) 03/14/2025 8:42 AM EDT Respiratory Rate 16 03/14/2025 8:42 AM EDT Oxygen Saturation 96% 03/14/2025 8:42 AM EDT Inhaled Oxygen Concentration - - Weight 93.5 kg (206 lb 3.2 oz) 03/14/2025 8:42 A M EDT Height 165.1 cm (5' 5 ) 03/14/2025 8:42 AM EDT Body Mass Index 34.31 03/14/2025 8:42 AM EDT documented in this encounter Progress Notes * Donna Hassan MD - 03/14/2025 8:40 AM EDT Subjective Patient ID: Maria M Khalil is a 54 y.o. female who presents for Hypertension. Pt is worried about BP going up after taking Epitol. BP normal with Generic carbamezepine No headaches no CP Review of Systems Constitutional: Negative. Respiratory: Negative. Negative for shortness of breath. Cardiovascular: Negative for chest pain and palpitations. Gastrointestinal: Negative. Genitourinary: Negative. Musculoskeletal: Negative for neck pain. Neurological: Negative for headaches. Objective Physical Exam Constitutional: Appearance: Normal appearance. Cardiovascular: Rate and Rhythm: Normal rate and regular rhythm. Pulses: Normal pulses. Heart sounds: Normal heart sounds. Pulmonary: Effort: Pulmonary effort is normal. Abdominal: General: Abdomen is flat. Neurological: Mental Status: She is alert. Assessment/Plan Diagnoses and all orders for this visit: Seizure disorder (CMS/HCC) Comments: pt to take only Generic Carbamezipine Elevated BP without diagnosis of hypertension Comments: New BP kit sent to pharmacy Adivised to keep log of numbers Coarse tremors Referred to Neuro Other orders - Blood Pressure kit; Check BP daily documented in this encounter Plan of Treatment Upcoming Encounters Date Type Department Care Team (Late st Contact Info) Description 03/29/2025 3:45 PM EDT Office Visit [facility] [address] [place] [phone] Name, MD Martin [address] [place] [phone] Scheduled Referrals Name Type Priority Associated Diagnoses Orde r Schedule Referral to Neurology Outpatient Referral Urgent Coarse tremors Expected: 03/14/2025 (Approximate), Expires: 03/14/2026 documented as of this encounter Visit Diagnoses Diagnosis Seizure disorder (CMS/[facility])- Primary Unspecified epilepsy without mention of intractable epilepsy Elevated BP without diagnosis of hypertension Coarse tremors Abnormal involuntary movements documented in this encounter Care Teams Fisher Trap Relationship Specialty Start Date End Date Name, MD Martin [address] [place] [phone] PCP - General Internal Medicine 02/22/25 documented as of this encounter
--- NOTE | ~2025-03-17 | MR_ITS ---
CLINICAL HISTORY: right exopthalmous, isolated left arm tremor MR Brain without gadolinium Comparison: None provided Findings: No restricted diffusion. No intra-axial mass or hemorrhage. No midline shift. No hydrocephalus. Vascular flow voids are intact. There is atrophy and gliosis involving the bilateral occipital lobes and to a lesser degree the bilateral frontal lobes near the vertex. Orbital contents are unremarkable. The sinuses and mastoid air cells are clear. No focal bone lesion. IMPRESSION: No acute findings. Bilateral frontal-occipital atrophy and gliosis. This document has been electronically signed by: Nils Victor MD on 03/18/2025 11:15:33
--- OUTSIDE RECORDS SUMMARY | 2025-03-17 08:17 | XMS_ITS | Clinical Summary ---
Author Organization [employer] Address [address] [facility] [address] [place] [address] Care Team Providers Care Bottling Room Worker Name Role Phone Name, Martin WHITMORE Primary Care Provider [phone] Allergies No known active allergies Medications carBAMazepine (TEGretol) 200 MG tablet Take 1 tablet (200 mg) by mouth 3 times daily. 90 tablet 5 025 Active PHENobarbital 100 MG tablet Take 1 tablet (100 mg) by mouth at bedtime. 30 tablet 5 025 Active Blood Pressure kit Check BP daily 1 kit 5 Active PHENobarbital 100 MG tablet Take 1 tablet (100 mg) by mouth at bedtime. 5 025 Discontinued(Re order (will not trigger notification to Pharmacy)) carBAMazepine (TEGretol) 200 MG tablet Take 1 tablet (200 mg) by mouth 3 times daily. 5 025 Discontinued(Re order (will not trigger notification to Pharmacy)) Active Problems Problem Noted Date Diagnosed Date Intellectual disability 02/22/2025 Assessment & Plan (03/03/2025 11:48 AM EDT): Baseline, minimal communication. Seizure disorder 02/22/2025 Assessment & Plan (03/03/2025 11:48 AM EDT): Moved here from [place], orlin adamson have current Neurologist. -referred to neurology 03/03/25 Orders: Referral to Neurology; Future Encounters Date Type Department Care Team Description 03/14/2025 8:40 AM EDT [facility] [address] [address] Donna Hassan MD Seizure disorder (CMS/HCC) (Primary Dx); Elevated BP without diagnosis of hypertension; Coarse tremors 03/14/2025 Travel 03/11/2025 Telephone [facility] [address] [place] [phone] Martin Burch MD Insurance Issue (Called pt about insurance from [place] and explained in order to be seen on Friday Pt had to bring in document stating [place] insurance was [place] and or to bring in new health insurance cards. PT sister explained she cannot make it to Friday03/14/2025 Appointment and would like to reschedule. I let her know that we wont be able to book another appointment until we have proof of new insurance. ) 03/11/[address] [address] Naya Esposito FNP Chart Prep 03/09/[address] [address] Martin Burch MD ER Follow-up 03/08/[address] [address] Martin Burch MD Medication Question 03/04/[address] [address] Martin Burch MD ER Follow-up 03/03/2025 11:00 AM EDT Office Visit [address] [address] Irasema Augustin MD Syncope, unspecified syncope type (Primary Dx); Seizure disorder (CMS/HCC); Intellectual disability; Tremor; Exophthalmos, constant, right 03/03/2025 Orders Only [facility] External Provider, [facility] 03/03/2025 Travel 02/23/2025 Refill [facility] [address] [place] [phone] Martin Burch MD 02/22/2025 11:00 AM EDT Office Visit [address] [place] [address] Name, MD Martin Axillary mass, right (Primary [...] Mass Index 34.31 03/14/2025 8:42 AM EDT Plan of Treatment Upcoming Encounters Date Type Department Care Team (Late st Contact Info) Description 03/29/2025 3:45 PM EDT Office Visit [facility] [address] [place] [address] Name, MD Martin [address] [place] [address] Health Maintenance Due Date Last Done Comments [...] 1992 Cervical Cancer Screening 2001 HPV/Cotest 2001 Pneumococcal Vaccine: 50+ Years (1 of 1 - PCV) 2021 Zoster Vaccines (1 of 2) 2021 Tobacco Screening 03/14/2026 03/14/2025 Mammogram 02/25/2027 02/25/2025, 02/25/2025 RSV Patients and Patients Aged 60 years or older (1 - 1-dose 75+ series) 2046 COVID-19 Vaccine Completed 03/11/2025 Influenza Vaccine Completed 03/11/2025 HIB Vaccines Aged Out No longer eligi [...] Procedure Name Priority Date/Time Associated Diagnosis Comments CT HEAD WO CONTRAST Routine 03/03/2025 3 :35 PM EDT XR CHEST 2 VIEWS Routine 03/03/2025 2:30 PM EDT ECG 12-LEAD Routine 03/03/2025 11:47 AM EDT Syncope, unspecified syncope type BI US BREAST LIMITED RIGHT Routine 02/25/2025 10:43 AM EDT Axillary mass, right BI MAMMOGRAM DIAGNOSTIC TOMOSYNTHESIS BILATERAL Routine 02/25/2025 9:57 AM EDT Axillary mass, right PHENOBARBITAL Routine 02/22/2025 12:25 PM EDT Seizure disorder (CMS/HCC) CARBAMAZEPINE, TOTAL Routine 02/22/2025 12:25 PM EDT Seizure disorder (CMS/HCC) COMPREHENSIVE METABOLIC PANEL Routine 02/22/2025 12:25 PM EDT Seizure disorder (CMS/HCC) CBC WITH AUTO DIFFERENTIAL Routine 02/22/2025 12:25 PM EDT Seizure disorder (CMS/HCC) from Last 3 Months Results * CT Head w/o Contrast (03/03/2025 3:35 PM EDT) Anatomical Region Laterality Modality Head, Neck Computed Tomogra phy 03/03/2025 3:35 PM EDT Narrative 03/03/2025 3:58 PM EDT [place] [address] [address] Scan Report Signed Patient: Maria M Pimentel#: [id number] : 1970 Acct:[id number] Age/Sex: 54 / F ADM Date: 03/03/25 Loc: .ED Attending Dr: Ordering Physician: Aurelia Bolivar DO Date of Service: 03/03/25 Procedure(s): CT head/brain wo IV con Accession Number(s): [id number] cc: Aurelia Bolivar DO; Name,Martin WHITMORE Report Number: [id number]: Total DLP = 604.00 mGy-cm Reason for Exam: trauma EXAMINATION: CT HEAD WITHOUT CONTRAST CLINICAL INFORMATION: Trauma, swelling posterior to the left mastoid COMPARISON: None available. TECHNIQUE: Contiguous axial imaging was performed from the skull base to vertex without intravenous administration of contrast. This CT examination was performed using dose optimization techniques as appropriate, variously including the following: *Automated exposure control *Adjustment of mA and/or kV according to patient size (this includes techniques or standardized protocols for targeted exams where dose is matched to indication/reason for exam; i.e. extremities or head) *Use of iterative reconstruction technique DLP: A 4 mGY*cm FINDINGS: There is no acute ischemic change. There is no intracranial hemorrhage. There is no mass-effect or midline shift. Basal cisterns and ventricles are within normal limits for age/cerebral volume. The right globe is mildly rotated laterally relative to the left. There is a small mucous retention cyst or less likely a polyp in the right frontal sinus. Foamy appearing opacity is present in the right maxillary sinus. There are no bony abnormalities. CT/CT head/brain wo IV con IMPRESSION: No acute intracranial abnormality. There is a small mucous retention cyst or less likely a polyp in the right frontal sinus. 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 Asymmetric lateral gaze of the right globe. Electronically signed by: Pedro Pablo Ramos MD 03/03/2025 03:55 PM EDT RP Dictated By: Pedro Pablo Ramos MD Signed By: <Electronically signed by Pedro Pablo Ramos MD in OV> 03/03/25 1555 DD/ 1535 TD/TT: 03/03/25 1547 Corn Breeder: Procedure Note Donotuseinterpreter, Image - 03/03/[address] [place] [address] [address] Scan Report Signed Patient: Lorenza Pimentel R#: [id number] : 1970Acct:[id number] Age/Sex: 54 / FADM Date: 03/03/25 Loc: HO.ED Attending Dr: Ordering Physician: Aurelia Bolivar DO Date of Service: 03/03/25 Procedure(s): CT head/brain wo IV con Accession Number(s): [id number] cc: Aurelia Bolivar DO; Name,Martin WHITMORE Report Number: [id number]: Total DLP = 604.00 mGy-cm Reason for Exam: trauma EXAMINATION: CT HEAD WITHOUT CONTRAST CLINICAL INFORMATION: Trauma, swelling posterior to the left mastoid COMPARISON: None available. TECHNIQUE: Contiguous axial imaging was performed from the skull base to vertex without intravenous administration of contrast. This CT examination was performed using dose optimization techniques as appropriate, variously including the following: *Automated exposure control *Adjustment of mA and/or kV according to patient size (this includes techniques or standardized protocols for targeted exams where dose is matched to indication/reason for exam; i.e. extremities or head) *Use of iterative reconstruction technique DLP: A 4 mGY*cm FINDINGS: There is no acute ischemic change. There is no intracranial hemorrhage. There is no mass-effect or midline shift. Basal cisterns and ventricles are within normal limits for age/cerebral volume. The right globe is mildly rotated laterally relative to the left. There is a small mucous retention cyst or less likely a polyp in the right frontal sinus. Foamy appearing opacity is present in the right maxillary sinus. There are no bony abnormalities. CT/CT head/brain wo IV con IMPRESSION: No acute intracranial abnormality. There is a small mucous retention cyst or less likely a polyp in the right frontal sinus. 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 Asymmetric lateral gaze of the right globe. Electronically signed by: Pedro Pablo Ramos MD 03/03/2025 03:55 PM EDT Dictated By: Pedro Pablo Ramos MD Signed By: <Electronically signed by Pedro Pablo Ramos MD in OV> 03/03/25 1555 DD/ 1535 TD/TT: 03/03/25 1547 Corn Breeder: [facility] External Provider IMG CT PROCEDURES Final Result * XR Chest 2 Views (03/03/2025 2:30 PM EDT) Anatomical Region Laterality Modality Chest Radiographic Roya ging 03/03/2025 2:30 PM EDT Narrative 03/03/2025 2:37 PM EDT [address] [address] XRay Report Signed Patient: Maria M Pimentel#: [id number] : 1970 Acct:[id number] Age/Sex: 54 / F ADM Date: 03/03/25 Loc: TERRY.ED Attending Dr: Ordering Physician: Aurelia Bolivar DO Date of Service: 03/03/25 Procedure(s): XR chest 2V Accession Number(s): [id number] cc: Aurelia Bolivar DO; Name,Martin WHITMORE Reason for Exam: chest pain EXAMINATION: XR CHEST CLINICAL INFORMATION: chest pain COMPARISON: None available. TECHNIQUE: 2 views of the chest were obtained. FINDINGS: No significant abnormality is noted involving the heart, lungs, mediastinum, bony thorax or soft tissues. XR/XR chest 2V IMPRESSION: No acute disease. Electronically signed by: Pedro Pablo Ramos MD 03/03/2025 02:35 PM EDT RP Dictated By: Pedro Pablo Ramos MD Signed By: <Electronically signed by Pedro Pablo Ramos MD in OV> 03/03/25 1435 DD/ 1430 TD/TT: 03/03/25 1432 Corn Breeder: Procedure Note Donotuseinterpreter, Image - 03/03/2025 [place] [address] XRay Report Signed Patient: Lorenza Pimentel R#: [id number] : 1970Acct:[id number] Age/Sex: 54 / FADM Date: 03/03/25 Loc: TERRY.ED Attending Dr: Ordering Physician: Aurelia Bolivar DO Date of Service: 03/03/25 Procedure(s): XR chest 2V Accession Number(s): [id number] cc: Aurelia Bolivar DO; Name,Martin WHITMORE Reason for Exam: chest pain EXAMINATION: XR CHEST CLINICAL INFORMATION: chest pain COMPARISON: None available. TECHNIQUE: 2 views of the chest were obtained. FINDINGS: No significant abnormality is noted involving the heart, lungs, mediastinum, bony thorax or soft tissues. XR/XR chest 2V IMPRESSION: No acute disease. Electronically signed by: Pedro Pablo Ramos MD 03/03/2025 02:35 PM EDT Dictated By: Pedro Pablo Ramos MD Signed By: <Electronically signed by Pedro Pablo Ramos MD in OV> 03/03/25 1435 DD/ 1430 TD/TT: 03/03/25 1432 Corn Breeder: [facility] External Provider IMG XR PROCEDURES Final Result * ECG 12 lead (03/03/2025 11:47 AM EDT) Narrative Irasema Augustin MD - 03/03/2025 11:47 AM EDT Probable inferior infarct, moderate inferior repolarization disturbance secondary to infarct, flipped T waves in 3 and aVR, aVF NSR 87 bpm Irasema Augustin MD ECG ORDERABLES Final Resu lt * BI US Breast Limited Right (02/25/2025 10:43 AM EDT) Anatomical Region Laterality Modality Breast Right Ultrasound 02/25/2025 10:4 3 AM EDT Narrative 02/25/2025 1:17 PM EDT [address] [place] [address] Ultrasound Report Signed with Addenda Patient: Maria M Pimentel#: [id number] : 1970 Acct:[id number] Age/Sex: 54 / F ADM Date: 02/25/25 Loc: HO.MAMMO Attending Dr: Martin Burch MD Ordering Physician: Martin Burch MD Date of Service: 02/25/25 Procedure(s): US breast RT limited mamm only Accession Number(s): [id number] cc: Martin Burch MD Reason for Exam: Right axillary mass ADDENDUM ADDENDUM #1 ADDENDUM: Addendum created to correct the assessment OVERALL ASSESSMENT: BI-RADS 1 - Negative RECOMMENDATION: 1. Patient should be managed based on the clinical impression. 2. Otherwise, routine annual screening mammography. Electronically signed by: Charli Henderson MD 03/08/2025 02:39 PM EDT RP Addendum Dictated By: Charli Henderson MD Addendum Signed By: <Electronically signed by Charli Henderson MD in OV> 03/08/25 1439 Addendum Cosigned By: DD/ /14/1042 TD/TT: 02/25/2511/14/1046 EXAMINATION (S): 1. MM DIAGNOSTIC DIGITAL BREAST TOMOSYNTHESIS, BILATERAL 2. US BREAST LIMITED RIGHT CLINICAL INFORMATION: Right axillary mass COMPARISON: None. This is a baseline study. TECHNIQUE: Digital breast tomosynthesis is performed in both the mediolateral oblique and craniocaudal views along with computer-aided detection (CAD). Synthesized 2D images are generated from the tomosynthesis. Spot compression tomosynthesis images were also obtained. BB marker and a triangular skin marker were placed in the right axilla, indicating the location of the lump/pain as directed by the patient. FINDINGS: BREAST COMPOSITION: There are scattered areas of fibroglandular density (ACR BI-RADS breast composition Category b). RIGHT BREAST: Focal asymmetry in the subareolar region is pliable with spot compression. No significant masses or suspicious calcifications are seen. In particular, no suspicious mammographic findings adjacent to the skin markers in the right axilla. Targeted ultrasound of the right breast was performed at the location of the palpable concern in the axilla. No suspicious mammographic is seen during the survey. Targeted ultrasound of the right breast was performed at the location of the mammographic finding. The survey throughout the 4:00-8:00 axis did not reveal suspicious sonographic findings. LEFT BREAST: No significant masses, suspicious calcifications or other abnormalities are seen. US/US breast RT limited mamm only IMPRESSION: RIGHT BREAST: Negative, no evidence of malignancy. In particular, no suspicious mammographic or sonographic findings to accounts for patient's palpable concern in the right axilla. Clinical follow-up is recommended. Otherwise, normal interval follow-up mammogram is recommended in 12 months. LEFT BREAST: Negative, no mammographic evidence of malignancy. Normal interval follow-up is recommended in 12 months. ASSESSMENT: BI-RADS 0 - Incomplete: Needs additional Imaging. RECOMMENDATION: 1. Patient should be managed based on the clinical impression. 2. Otherwise, routine annual screening mammography. Results were provided to the patient at time of visit by the technologist. This patient's information was entered into a reminder system with a target due date for their next mammogram. Electronically signed by: Charli Henderson MD 02/25/2025 01:15 PM EDT RP Dictated By: Charli Henderson MD Signed By: <Electronically signed by Charli Henderson MD in OV> 02/25/25 1315 DD/ 42 TD/TT: 02/25/251046 Corn Breeder: Procedure Note Donotuseinterpreter, Image - 03/08/2025 [facility] [address] [place] [address] Ultrasound Report Signed with Addenda Patient: Lorenza Pimentel R#: [id number] : 1970Acct:[id number] Age/Sex: 54 / FADM Date: 02/25/25 Loc: HO.MAMMO Attending Dr: Martin Burch MD Ordering Physician: Martin Burch MD Date of Service: 02/25/25 Procedure(s): US breast RT limited mamm only Accession Number(s): [id number] cc: Martin Burch MD Reason for Exam: Right axillary mass ADDENDUM ADDENDUM #1 ADDENDUM: Addendum created to correct the assessment OVERALL ASSESSMENT: BI-RADS 1 - Negative RECOMMENDATION: 1. Patient should be managed based on the clinical impression. 2. Otherwise, routine annual screening mammography. Electronically signed by: Charli Henderson MD 03/08/2025 02:39 PM EDT RP Addendum Dictated By: Charli Henderson MD Addendum Signed By: <Electronically signed by MD J Luis in OV> 03/08/25 1439 Addendum Cosigned By: DD/ /14/1042 TD/TT: 02/25/2511/14/1046 EXAMINATION (S): 1. MM DIAGNOSTIC DIGITAL BREAST TOMOSYNTHESIS, BILATERAL 2. US BREAST LIMITED RIGHT CLINICAL INFORMATION: Right axillary mass COMPARISON: None. This is a baseline study. TECHNIQUE: Digital breast tomosynthesis is performed in both the mediolateral oblique and craniocaudal views along with computer-aided detection (CAD). Synthesized 2D images are generated from the tomosynthesis. Spot compression tomosynthesis images were also obtained. BB marker and a triangular skin marker were placed in the right axilla, indicating the location of the lump/pain as directed by the patient. FINDINGS: BREAST COMPOSITION: There are scattered areas of fibroglandular density (ACR BI-RADS breast composition Category b). RIGHT BREAST: Focal asymmetry in the subareolar region is pliable with spot compression. No significant masses or suspicious calcifications are seen. In particular, no suspicious mammographic findings adjacent to the skin markers in the right axilla. Targeted ultrasound of the right breast was performed at the location of the palpable concern in the axilla. No suspicious mammographic is seen during the survey. Targeted ultrasound of the right breast was performed at the location of the mammographic finding. The survey throughout the 4:00-8:00 axis did not reveal suspicious sonographic findings. LEFT BREAST: No significant masses, suspicious calcifications or other abnormalities are seen. US/US breast RT limited mamm only IMPRESSION: RIGHT BREAST: Negative, no evidence of malignancy. In particular, no suspicious mammographic or sonographic findings to accounts for patient's palpable concern in the right axilla. Clinical follow-up is recommended. Otherwise, normal interval follow-up mammogram is recommended in 12 months. LEFT BREAST: Negative, no mammographic evidence of malignancy. Normal interval follow-up is recommended in 12 months. ASSESSMENT: BI-RADS 0 - Incomplete: Needs additional Imaging. RECOMMENDATION: 1. Patient should be managed based on the clinical impression. 2. Otherwise, routine annual screening mammography. Results were provided to the patient at time of visit by the technologist. This patient's information was entered into a reminder system with a target due date for their next mammogram. Electronically signed by: Charli Henderson MD 02/25/2025 01:15 PM EDT Dictated By: Charli Henderson MD Signed By: <Electronically signed by Charli Henderson MD in OV> 02/25/25 1315 DD/ 1043 TD/TT: 02/25/25 1047 Corn Breeder: Martin Burch [facility] Edited Result - Final * BI Mammogram Diagnostic Tomosynthesis Bilateral (02/25/2025 9:57 AM EDT) Anatomical Region Laterality Modality Breast Bilateral Mammography 02/25/2025 9:57 AM EDT Narrative 02/25/2025 1:17 PM EDT [facility] [address] [place], [place] [address] Mammography Report Signed with Addenda Patient: Maria M Pimentel#: [id number] : 1970 Acct:[id number] Age/Sex: 54 / F ADM Date: 02/25/25 Loc: HO.MAMMO Attending Dr: Martin Burch MD Ordering Physician: Martin Burch MD Results: 1Negative Date of Service: 02/25/25 Follow Up: 1 Year From Orig inal Mammogram Procedure(s): MM tomosynthesis diagnostic BI Accession Number(s): [id number] cc: Martin Burch MD Reason For Exam: Right axillary mass ADDENDUM ADDENDUM #1 ADDENDUM: Addendum created to correct the assessment OVERALL ASSESSMENT: BI-RADS 1 - Negative RECOMMENDATION: 1. Patient should be managed based on the clinical impression. 2. Otherwise, routine annual screening mammography. Electronically signed by: Charli Henderson MD 03/08/2025 02:39 PM EDT Addendum Dictated By: Charli Henderson MD Addendum Signed By: <Electronically signed by Charli Henderson MD in OV> 03/08/25 1439 Addendum Cosigned By: DD/ /14/956 TD/TT: 02/25/2511/14/1013 EXAMINATION (S): 1. MM DIAGNOSTIC DIGITAL BREAST TOMOSYNTHESIS, BILATERAL 2. US BREAST LIMITED RIGHT CLINICAL INFORMATION: Right axillary mass COMPARISON: None. This is a baseline study. TECHNIQUE: Digital breast tomosynthesis is performed in both the mediolateral oblique and craniocaudal views along with computer-aided detection (CAD). Synthesized 2D images are generated from the tomosynthesis. Spot compression tomosynthesis images were also obtained. BB marker and a triangular skin marker were placed in the right axilla, indicating the location of the lump/pain as directed by the patient. FINDINGS: BREAST COMPOSITION: There are scattered areas of fibroglandular density (ACR BI-RADS breast composition Category b). RIGHT BREAST: Focal asymmetry in the subareolar region is pliable with spot compression. No significant masses or suspicious calcifications are seen. In particular, no suspicious mammographic findings adjacent to the skin markers in the right axilla. Targeted ultrasound of the right breast was performed at the location of the palpable concern in the axilla. No suspicious mammographic is seen during the survey. Targeted ultrasound of the right breast was performed at the location of the mammographic finding. The survey throughout the 4:00-8:00 axis did not reveal suspicious sonographic findings. LEFT BREAST: No significant masses, suspicious calcifications or other abnormalities are seen. MM/MM tomosynthesis diagnostic BI IMPRESSION: RIGHT BREAST: Negative, no evidence of malignancy. In particular, no suspicious mammographic or sonographic findings to accounts for patient's palpable concern in the right axilla. Clinical follow-up is recommended. Otherwise, normal interval follow-up mammogram is recommended in 12 months. LEFT BREAST: Negative, no mammographic evidence of malignancy. Normal interval follow-up is recommended in 12 months. ASSESSMENT: BI-RADS 0 - Incomplete: Needs additional Imaging. RECOMMENDATION: 1. Patient should be managed based on the clinical impression. 2. Otherwise, routine annual screening mammography. Results were provided to the patient at time of visit by the technologist. This patient's information was entered into a reminder system with a target due date for their next mammogram. Electronically signed by: Charli Henderson MD 02/25/2025 01:15 PM EDT Dictated By: Charli Henderson MD Signed By: <Electronically signed by Charli Henderson MD in OV> 02/25/25 1315 DD/ 6 TD/TT: 02/25/25 101 Corn Breeder: Procedure Note Ronaldoter, Image - 03/08/2025 [facility] [address] [place], [place] [address] Mammography Report Signed with Addenda Patient: Lorenza Pimentel R#: [id number] : 1970Acct:[id number] Age/Sex: 54 / FADM Date: 02/25/25 Loc: HO.MAMMO Attending Dr: Martin Burch MD Ordering Physician: Martin Burchesults: 1Negative Date of Service: 02/25/25Follow Up: 1 Year From Orig inal Mammogram Procedure(s): MM tomosynthesis diagnostic BI Accession Number(s): [id number] cc: Martin Burch MD Reason For Exam: Right axillary mass ADDENDUM ADDENDUM #1 ADDENDUM: Addendum created to correct the assessment OVERALL ASSESSMENT: BI-RADS 1 - Negative RECOMMENDATION: 1. Patient should be managed based on the clinical impression. 2. Otherwise, routine annual screening mammography. Electronically signed by: Charli Henderson MD 03/08/2025 02:39 PM EDT Addendum Dictated By: Charli Henderson MD Addendum Signed By: <Electronically signed by MD J Luis in OV> 03/08/25 1439 Addendum Cosigned By: DD/ /14/956 TD/TT: 02/25/2511/14/1013 EXAMINATION (S): 1. MM DIAGNOSTIC DIGITAL BREAST TOMOSYNTHESIS, BILATERAL 2. US BREAST LIMITED RIGHT CLINICAL INFORMATION: Right axillary mass COMPARISON: None. This is a baseline study. TECHNIQUE: Digital breast tomosynthesis is performed in both the mediolateral oblique and craniocaudal views along with computer-aided detection (CAD). Synthesized 2D images are generated from the tomosynthesis. Spot compression tomosynthesis images were also obtained. BB marker and a triangular skin marker were placed in the right axilla, indicating the location of the lump/pain as directed by the patient. FINDINGS: BREAST COMPOSITION: There are scattered areas of fibroglandular density (ACR BI-RADS breast composition Category b). RIGHT BREAST: Focal asymmetry in the subareolar region is pliable with spot compression. No significant masses or suspicious calcifications are seen. In particular, no suspicious mammographic findings adjacent to the skin markers in the right axilla. Targeted ultrasound of the right breast was performed at the location of the palpable concern in the axilla. No suspicious mammographic is seen during the survey. Targeted ultrasound of the right breast was performed at the location of the mammographic finding. The survey throughout the 4:00-8:00 axis did not reveal suspicious sonographic findings. LEFT BREAST: No significant masses, suspicious calcifications or other abnormalities are seen. MM/MM tomosynthesis diagnostic BI IMPRESSION: RIGHT BREAST: Negative, no evidence of malignancy. In particular, no suspicious mammographic or sonographic findings to accounts for patient's palpable concern in the right axilla. Clinical follow-up is recommended. Otherwise, normal interval follow-up mammogram is recommended in 12 months. LEFT BREAST: Negative, no mammographic evidence of malignancy. Normal interval follow-up is recommended in 12 months. ASSESSMENT: BI-RADS 0 - Incomplete: Needs additional Imaging. RECOMMENDATION: 1. Patient should be managed based on the clinical impression. 2. Otherwise, routine annual screening mammography. Results were provided to the patient at time of visit by the technologist. This patient's information was entered into a reminder system with a target due date for their next mammogram. Electronically signed by: Charli Henderson MD 02/25/2025 01:15 PM EDT Dictated By: Charli Henderson MD Signed By: <Electronically signed by Charli Henderson MD in OV> 02/25/25 1315 DD/ 0957 TD/TT: 02/25/25 1014 Corn Breeder: [place] Burch MD IM BI PROCEDURES Edited Result - Final * (ABNORMAL) CBC auto differential (02/22/2025 12:25 PM EDT) White Blood Count 7.5 4.8 - 10.8 X10*3/uL [facility] Red Blood Count 4.32 4.20 - 5.50 X10*6/uL [facility] Hemoglobin 14.0 12.0 - 16.0 g/dl [facility] Hematocrit 42.5 37.0 - 47.0 % [facility] Mean Corpuscular Volume 98.4(H) 80.0 - 98.0 fL [facility] Mean Corpuscular Hemoglobin 32.4 27.0 - 33.0 pg [facility] Mean Corpuscular HGB Conc 32.9 31.0 - 35.0 g/dl [facility] Red Cell Distribution Width 12.8 11.0 - 16.0 % [facility] Platelet Count 223 160 - 400 X10*3/uL [facility] Mean Platelet Volume 11.1 9.4 - 12.3 fL [facility] Neutrophils Percent Auto 74.9(H) 45 - 73 % [facility] Imm Gran Pct Auto 0.4 0.0 - 0.4 % [facility] Lymphocytes Percent Auto 17.3(L) 20 - 40 % [facility] Monocytes Percent Auto 7.3 2 - 11 % [facility] Eosinophils Percent Auto 0.0 0 - 4 % [facility] Basophils Percent Auto 0.1 0 - 2 % [facility] NRBC Pct Auto 0.0 0.0 - 0.2 /100WBC [facility] Neutrophils Absolute Auto 5.6 2.0 - 8.3 x10*3/uL [facility] Imm Gran Abs Auto 0.03 0.00 - 0.03 X10*3/uL [facility] Lymphocytes Absolute Auto 1.3 1.2 - 4.9 X10*3/uL [facility] Monocytes Absolute Auto 0.6 0.1 - 1.2 X10*3/uL [facility] Eosinophils Absolute Auto 0.0 0.0 - 0.4 X10*3/uL [facility] Basophils Absolute Auto 0.0 0.0 - 0.2 X10*3/uL [facility] NRBC Abs Auto 0.000 0.0 - 0.012 X10*3/uL [facility] Blood Venous blood specimen / Unknown 02/22/2025 12:25 PM EDT 02/22/2025 1:17 PM EDT us [place] Burch MD LAB BLOOD ORDERABLES Final Resul t [facility] [address] [place] [phone] * Phenobarbital (02/22/2025 12:25 PM EDT) Phenobarbital 22.3 10.0 - 40.0 mcg/mL [facility] Blood Venous blood specimen / Unknown 02/22/2025 12:25 PM EDT 02/22/2025 12:47 PM EDT us [place] Burch MD LAB BLOOD ORDERABLES Final Resul t Performing Organization Address [facility] Co de Phone Number [facility] [address] [place] [phone] * Carbamazepine, Total (02/22/2025 12:25 PM EDT) Carbamazepine Tegretol 8.1 5.0 - 12.0 mcg/mL [facility] Blood Venous blood specimen / Unknown 02/22/2025 12:25 PM EDT 02/22/2025 12:47 PM EDT us [place] Burch MD LAB BLOOD ORDERABLES Final Resul t Performing Organization Address City/[facility]/ZIP Co de Phone Number [facility] [address] [place] [phone] * (ABNORMAL) Comprehensive Metabolic Panel (02/22/2025 12:25 PM EDT) Sodium 138 135 - 145 mmol/L [facility] Potassium 4.4 3.3 - 5.1 mmol/L [facility] Chloride 102 96 - 108 mmol/L [facility] Carbon Dioxide 29 22 - 29 mmol/L [facility] Anion Gap 11(L) 12 - 20 [facility] Urea Nitrogen (BUN) 11 9 - 16 mg/dL [facility] Creatinine, Serum 0.70 0.5 - 1.4 mg/dL [facility] Estimated Glomerular Filt Rate >60 [facility] Comment:Chronic Kidney Disea se: Estimated GFR < 60 mL/min/1.66k1Buaidn Kidney Disease: Estimated GFR < 15 mL/min/1.73m2 Glucose 100 60 - 115 mg/dL [facility] Calcium 8.7 8.4 - 10.2 mg/dL [facility] Bilirubin, Total 0.2 0.0 - 1.0 mg/dL [facility] Aspartate Amino Transferase 25 5 - 31 U/L [facility] Alanine Aminotransferase 19 0 - 31 U/L [facility] Total Protein 7.3 6.5 - 8.0 g/dL [facility] Albumin Level 4.0 3.5 - 5.0 g/dL [facility] Alkaline Phosphatase 89 39 - 117 U/L [facility] Blood Venous blood specimen / Unknown 02/22/2025 12:25 PM EDT 02/22/2025 1:18 PM EDT us [place] Name LAB BLOOD ORDERABLES Final Resul t [facility] [address] [place], [place] [phone] from Last 3 Months Insurance [facility] STANDARD GENERIC MEDICARE ADVANTAGE on file Care Teams Bottling Room Worker Relationship Specialty Start Date End Date Name, MD [place] [address] [place] [phone] PCP - General Internal Medicine 02/22/25
--- OUTSIDE RECORDS SUMMARY | 2025-03-17 08:18 | XMS_ITS | Encounter Summary ---
Author Organization [employer] Address [address] [facility] [address] [place] [address] Care Team Providers Care Yellow Pages Space Salesperson Name Role Phone Name, [place] WHITMORE Primary Care Provider [phone] Encounter Details Date Type Department Care Team (Latest Contact Info) Description 03/14/2025 Travel Social History Tobacco Use Types Packs/Day [...] 03/29/2025 3:45 PM EDT Office Visit [facility] [address] [place] [address] NameMartin MD [address] [place] [address] documented as of this encounter Visit Diagnoses Not on filedocumented in this encounter Care Teams Yellow Pages Space Salesperson Relationship Specialty Start Date End Date [place] Burch MD [address] [place] [address] PCP - General Internal Medicine 02/22/25 documented as of this encounter
== END 2025-03-17 08:04 | disposition home or self-care (01) ==
LOC: HO.MRI 08:03
PROVIDERS: PCP Internal Medicine Geriatric Medicine; Visit Provider Family Medicine
DX: H05.241 Constant exophthalmos, right eye (principal); R25.1 Tremor, unspecified
CPT/HCPCS: 70551

== ENCOUNTER 2025-03-31 09:32 | Outpatient (REF) | payer MEDICARE, MEDICAID, SELFPAY ==
[2025-03-31 11:50] LABS: Anion Gap 10 (12-20); Blood Urea Nitrogen 10 mg/dL (9-16); Calcium 9.2 mg/dL (8.4-10.2); Carbon Dioxide 32 mmol/L (22-29); Chloride 103 mmol/L (96-108); Estimated Glomerular Filt Rate > 60; Potassium 4.2 mmol/L (3.3-5.1); Sodium 141 mmol/L (135-145)
[2025-03-31 12:09] LABS: Hematocrit 42.7 % (37.0-47.0); Hemoglobin 13.9 g/dl (12.0-16.0); Mean Corpuscular HGB Conc 32.6 g/dl (31.0-35.0); Mean Corpuscular Hemoglobin 32.0 pg (27.0-33.0); Mean Corpuscular Volume 98.4 fL (80.0-98.0); NRBC Abs Auto 0.000 X10*3/uL (0.0-0.012); NRBC Pct Auto 0.0 /100WBC (0.0-0.2); Platelet Count 248 X10*3/uL (160-400); Red Blood Count 4.34 X10*6/uL (4.20-5.50); White Blood Count 6.2 X10*3/uL (4.8-10.8)
[2025-03-31 12:27] LABS: Carbamazepine Tegretol 4.8 mcg/mL (5.0-12.0)
== END 2025-03-31 09:33 | disposition home or self-care (01) ==
LOC: HO.HHCL 09:32
PROVIDERS: Family Medicine; PCP Internal Medicine Geriatric Medicine; Visit Provider Internal Medicine Geriatric Medicine
DX: R55 Syncope and collapse (principal); G40.909 Epilepsy, unspecified, not intractable, without status epilepticus
CPT/HCPCS: 36415; 80048; 80156; 85027

== ENCOUNTER 2025-04-13 08:30 | Outpatient (AMB) | payer MEDICARE, MEDICAID, SELFPAY ==
--- NOTE | 2025-04-13 08:50 | A.OFFVIS_ITS ---
Vital Signs 04/13/25 08:59 Height 5 ft 7 in BP 150/98 H Blood Pressure Location Lt brachial Position Sitting Respiration 16 Pulse 70 Pulse Source Palpation Intake Visit Reasons: Tremors Recreational Vehicle Resort Manager Required: Yes Recreational Vehicle Resort Manager Services: Recreational Vehicle Resort Manager Present Recreational Vehicle Resort Manager Name: Matthieu [phone] Information Interpreted: non-clinical & clinical Allergies No Known Allergies Allergy (Verified 03/03/25 12:41) Is last menstrual period known: No Post menopausal: Yes Patient : No HPI Comments Details: Maria M is a right handed 54-year-old female patient with a past medical history of seizure disorder, intellectual disability, tremor, exophthalmos who has been recommended for evaluation of tremor. It appears that she is on a combination of carbamazepine 100 mg 3 times daily and phenobarbital 100 mg at bedtime for control of her seizures. She had been taking carbamazepine 200mg three times daily and it was reduced to 100mg three times daily. Maria M is accompanied today by her sister. Together they report that he has an intermittent left upper extremity tremor that started about 1 month ago. They notice the tremor at least a few times per week but not necessarily every day. It has not impacted her ability to perform day to day activities. The tremor is not brought on by certain positions. It is not clear if the tremor is worse at rest vs brought on by use of her hands. There is no known family history of tremor. Since decreasing her crabamazepine from 200mg TID to 100mg TID there has not been any change to her tremor. She denies sleep disturbances or acting out of dreams. She denies constipation or loss of sense of smell. There has been no change to her gait or mentation though her sister notes that she walks slow at baseline and historically she has had some difficulty with retaining new information . Backround information: Sleep- Reports that she sleeps well though does report some snoring intermittently Denies ETOH, ilicit drugs, or tobacco use Lives with her sister who assists with baiting, dressing, and grooming. She takes her medications independently though her sister does supervise her taking her medications. Review of seizure history: She was first diagnosed with seizures as a child/ and has been on phenobarbitol and carbamazepine for many years. Her sister cannot recall the time she had her last seizure but it was many years ago . Her sister denies any known loss of awareness, staring events, changes in mentation, or involuntary movements. Prior workup: CT head without contrast 03/03/2025: Right globe is mildly rotated laterally relative to the left, otherwise, no acute ischemic change, intracranial hemorrhage, or mass effect. No acute intracranial abnormality. [facility] Medical History (Updated 04/13/25 @ 09:25 by Carol Ordoñez CNP) Seizure Syncope Tremor (~04/13/25) Review of Systems Const All systems reviewed & are unremarkable except as noted in HPI and below Physical Exam Const General: cooperative, healthy appearing, comfortable and no acute distress Nutritional Appearance: well nourished HEENT Head: Yes normal to inspection and Yes normocephalic Eyes Alignment and Position: alignment abnormal and other (Strabismus and exophthalmos) Eyelids: Yes eyelids normal Conjunctivae: conjunctivae normal Sclerae: sclerae normal Neck Neck: Yes normal visual inspection and Yes full ROM General: Yes no CVA tenderness Back/Spine/Pelvis Back: no CVA tenderness Cervical Spine: normal cervical lordosis Thoracic/Lumbar Spine: thoracic and lumbar spine normal to inspection Neuro General: tone normal and deep tendon reflexes 2+ bilaterally Cranial nerves: Yes Facial sensation intact/muscles of mastication intact and Yes Midline tongue present Cognition (Neuro): abnormal cognition (Cognition normal for patient. Known history of intellectual disability) Gait exam (Neuro): Other gait observations present (Slow) Motor exam (neuro): 5/5 motor strength present throughout and Tremors during motor activity present (And very mild low amplitude intermittent left upper extremity tremor) Sensory Exam: double simultaneous stimulation for sensation normal Romberg Test: Negative Pupils: Normal pupillary reactivity/response: bilateral Assessment & Plan Assessment & Plan (1) Tremor: Onset Date: ~04/13/25 Code(s): R25.1 - Tremor, unspecified Category: Medical (2) Seizure disorder: Code(s): G40.909 - Epilepsy, unspecified, not intractable, without status epilepticus Category: Medical Plan Maria M is a right handed 54-year-old female patient with a past medical history of seizure disorder, intellectual disability, tremor, exophthalmos who has been recommended for evaluation of tremor. On exam, she has a very mild and intermittent left upper extremity tremor that is low in amplitude and high frequency. It is more pronounced with extremities extended. She does not have any rest tremor. Her tone is normal, she does not exhibit focal bradykinesia though her gait is slow. Her tremor is not pronounced during ambulation. Tremor may be benign or possibly drug related however a reduction in carbamazepine did not make any substantial difference. Because she has been stable in terms of seizure on lower dose of carbamazepine, we can consider remaining at this dose and see how her tremor responds long-term. CT of the brain recently performed was nonacute. Upon review of labs, I do not see any recent TSH level available for review. Because thyroid abnormalities can potentially cause tremor, I am recommending a thyroid level and continuation of antiepileptic medication at current levels. We will follow up in 3 months for repeat examination. We did also review risks and benefits of medications that can be used to control tremor. Generally however, until tremors impact day-to-day life, we typically shy away from pharmaceutical management as this can cause further medication side effects. -TSH level -Contineu AEDs at current dose -Follow-up in 3 months Coding Level of Care Code New Pt Level 4 (01310) Diagnoses Tremor R25.1 Seizure disorder G40.909
--- OUTSIDE RECORDS SUMMARY | 2025-04-13 08:50 | XMS_ITS | Clinical Summary ---
Author Organization [facility] Address [address] [place] [address] Phone Care Team Providers Care Adjunct Professor Name Role Phone Unavailable Primary Care Provider Unavailabl e Social History Tobacco Use Types Packs/Day Years Used Date Smoking Tobacco: Never Assessed Comments Unknown Sex and Gender Information Value Date Recorded Sex Assigned at Not on file Legal Sex Female 8:17 AM EDT Gender Identity Not on file Sexual Orientation Not on file Plan of Treatment Upcoming Encounters Date Type Department Care Team ([facility] Contact Info) Description 06/06/2025 10:15 AM EST Office Visit Orthopedic Surgery - [place] [address] [phone] Pablo Higgins, DPM [address] [phone] Health Maintenance Due Date Last Done Comments Breast Cancer Screening 1971 Colorectal Cancer Screening: Colonoscopy 1971 DTaP,Tdap,and Td Vaccines (1 - Tdap) 1990 Hepatitis B Vaccines (1 of 3 - 19+ 3-dose series) 1990 Cervical Cancer Screening: P ap Smear 1992 Pneumococcal Vaccine: 50+ Ye ars (1 of 1 - PCV) 2021 Zoster Vaccines (1 of 2) 2021 Depression Screening 06/23/2024 COVID-19 Vaccine (1 - 2023-2 5 season) 2025 Influenza Vaccine (#1) 2025 HIV Screening 03/31/2025 Hepatitis C Screening 03/31/2025 Medicare Annual Wellness Visit 03/31/2025 Social Influencers of Health Screening 03/31/2025 RSV Immunization Adult Patie nts (1 - 1-dose 75+ series) 2046 HIB [...] on patient's age to complete this topic MMR Vaccines Aged Out No longer eligi ble based on patient's age to complete this topic Meningococcal ACWY Vaccine Aged Out N o longer eligible based on patient's age to complete this topic Meningococcal B Vaccine Aged Out No l onger eligible based on patient's age to complete this topic RSV Immunization Patients Un cecilia 20 months Aged Out No longer eligible b ased on patient's age to complete this topic Varicella Vaccines Aged Out No longer eligible based on patient's age to complete this topic Insurance MEDICARE [place]ICA[place] - [place]
[2025-04-13 08:59] VITALS: BP 150/98; PULSE 70; RESP 16
== END 2025-04-13 09:40 | disposition home or self-care (01) ==
LOC: HO.HSM 08:31
PROVIDERS: PCP Internal Medicine Geriatric Medicine; Visit Provider Nurse Practitioner
DX: R25.1 Tremor, unspecified (principal); G40.909 Epilepsy, unspecified, not intractable, without status epilepticus
CPT/HCPCS: 99204

== ENCOUNTER → 2025-04-13 08:30 | Outpatient (BNVA) | payer MEDICARE, MEDICAID, SELFPAY | PROVIDERS: PCP Internal Medicine Geriatric Medicine; Visit Provider Nurse Practitioner | DX: G40.909 Epilepsy, unspecified, not intractable, without status epilepticus (principal); R25.1 Tremor, unspecified | CPT/HCPCS: 99202 ==

== ENCOUNTER 2025-04-14 08:30 | Outpatient (REF) | payer MEDICAID, SELFPAY ==
--- OUTSIDE RECORDS SUMMARY | 2025-04-14 08:56 | XMS_ITS | Clinical Summary ---
Author Organization [facility] Address [address] [place] [address] Phone Care Team Providers Care Life Educator Name Role Phone Unavailable Primary Care Provider Unavailabl e Social History Tobacco Use Types Packs/Day Years Used Date Smoking Tobacco: Never Assessed Comments Unknown Sex and Gender Information Value Date Recorded Sex Assigned at Not on file Legal Sex Female 8:17 AM EDT Gender Identity Not on file Sexual Orientation Not on file Plan of Treatment Upcoming Encounters Date Type Department Care Team ([facility] Contact Info) Description 06/06/2025 10:15 AM EST Office Visit Orthopedic Surgery - [place] [address] [phone] Pablo Higgins, DPM [address] [phone] Health Maintenance Due Date Last [...]
== END 2025-04-14 08:31 | disposition home or self-care (01) ==
LOC: HO.LAB 08:30
PROVIDERS: PCP Internal Medicine Geriatric Medicine; Visit Provider Nurse Practitioner
DX: G40.909 Epilepsy, unspecified, not intractable, without status epilepticus (principal); R25.1 Tremor, unspecified
CPT/HCPCS: 36415; 84443

== ENCOUNTER 2025-05-02 14:30 | Outpatient (AMB) | payer MEDICARE, MEDICAID, SELFPAY ==
--- NOTE | 2025-05-02 14:32 | A.OFFVIS_ITS ---
Vital Signs 3 05/02/25 14:49 Height 5 ft 7 in Weight 209 lb BMI 32.7 BP 137/88 Blood Pressure Location Lt brachial Position Sitting Pulse 82 Intake Visit Reasons: (L) axillary mass Intake Note: Patient is seen in office for evaluation of an axillary mass. Pt c/o: lump on the right armpit, onset for many yrs, denies discharge, redness or concerns Solar Photovoltaic Electrician Required: Yes Solar Photovoltaic Electrician Language: Corporate Banking Officer Services: Solar Photovoltaic Electrician Present Solar Photovoltaic Electrician Name: Lily KAPADIA Information Interpreted: non-clinical & clinical Charging Manipulator: Charging Manipulator Present Accompanied by: Sister Allergies No Known Allergies Allergy (Verified 05/02/25 14:48) Medication List - Last Reconciled 05/03/25 by Dez Milligan MD carbamazepine 100 mg PO TID loratadine 10 mg PO DAILY phenobarbital 100 mg PO BEDTIME HPI Comments Details: 54-year-old female patient presenting with her mother for evaluation of a soft tissue lump located in the right axilla. She reports having this for many years without any recent changes in size or texture. She denies any pain associated with the lump even with clothing pushing on it. A recent mammogram and ultrasound performed on 02/25/2025 revealed no evidence of malignancy and no suspicious mammographic or sonographic findings to account for the palpable lump in the right axilla (BI-RADS 1). Routine follow-up mammography was recommended. She denies any previous history of breast problems or breast surgery. Her menarche was at a 12 years old, she is G0 and reports her last period with the age of 15. She has never been on hormone replacement. Her family history is negative for breast cancer or ovarian cancer. [facility] Medical History Seizure Syncope Tremor (~04/13/25) Review of Systems Const Unobtainable due to mental condition Physical Exam Vital Signs: Last Vital Signs Pulse 82 05/02/25 14:49 BP 137/88 05/02/25 14:49 BMI result Body Mass Index 32.7 Const General: no acute distress Nutritional Appearance: well nourished Orientation/consciousness: patient oriented x3 Chest Other: Left breast: No skin change, no nipple retraction, no nipple discharge, no palpable mass, no enlarged lymph nodes. Right breast: No skin change, no nipple retraction, no nipple discharge, no palpable mass, no enlarged lymph nodes, axillary breast tissue as noted below. Chest/axillae images: 2 1. Area of axillary breast tissue on the right side measuring approximately 7-8 cm in diameter with mild fibrocystic pattern but no discrete mass appreciated. No lymphadenopathy noted as well. Resp Effort & Inspection: normal respiratory effort, no audible wheezes, no cough and no respiratory distress GI Inspection: Yes normal to inspection Neuro General: patient oriented x3 Assessment & Plan Assessment & Plan (1) Axillary accessory breast tissue: Code(s): Q83.1 - Accessory breast Category: Medical Plan 54-year-old female patient presenting with complaints of swelling in the right axilla which has been present for many years with no significant changes. Recent mammogram and ultrasound also revealed no suspicious findings with special attention to the right axilla. Examination does reveal an area of axillary breast tissue with no suspicious changes. No enlarged lymph nodes are appreciated. We discussed the possibility of excising this large mass however because the lesion has been present for so long and she is fairly asymptomatic, I recommended continued observation with no surgical intervention. She and her mother expressed understanding and agree with the plan. I recommended follow-up examination in approximately 6 months, sooner PRN. Coding Level of Care Code New Pt Level 4 (67932) Diagnoses Axillary accessory breast tissue Q83.1
[2025-05-02 14:49] VITALS: BP 137/88; PULSE 82; BMI 32.7
--- OUTSIDE RECORDS SUMMARY | 2025-05-02 16:51 | XMS_ITS | Clinical Summary ---
Author Organization [employer] Address [address] [place] [address] Care Team Providers Care Affiliate Marketing Specialist Name Role Phone Name, Martin WHITMORE Primary Care Provider [phone] Allergies No known active allergies Medications Blood Pressure kit Check BP daily 1 kit 5 Active carBAMazepine (TEGretol) 100 MG chewable tablet Chew 1 tablet (100 mg) 3 times daily. 90 tablet 11 5 03/29/20 26 Active loratadine (Claritin) 10 MG tablet Take 1 tablet (10 mg) by mouth Once per day. 30 tablet 11 5 03/29/20 26 Active PHENobarbital 100 MG tablet TAKE 1 TABLET BY MOUTH AT BEDTIME 30 tablet 5 Active clotrimazole (Lotrimin) 1 % cream Apply topically 2 times daily for 28 days. 42 g 5 5 04/26/20 25 Active Problems Problem Noted Date Diagnosed Date Intellectual disability 02/22/2025 Assessment & Plan (03/03/2025 11:48 AM EDT): Baseline, minimal communication. Seizure disorder (CMS/HCC) 02/22/2025 Assessment & Plan (03/03/2025 11:48 AM EDT): Moved here from [place], orlin adamson have current Neurologist. -referred to neurology 03/03/25 Orders: Referral to Neurology; Future Encounters Date Type Department Care Team Description 04/14/2025 Telephone [facility] [address] [place] [address] Martin Burch MD Med Refill 03/30/2025 Refill [facility] [place] [address] Martin Burch MD 03/29/2025 3:45 PM EDT Office [address] [facility] [place] [address] Martin Burch MD Seizure disorder (CMS/HCC) (HCC) (Primary Dx); Axillary mass, right; Tinea corporis; Encounter for immunization 03/29/2025 Travel 03/28/2025 8:40 AM EDT Office Visit [facility] [address] [place] [phone] Taylor Merino NP Dermatitis associated with moisture (Primary Dx); Onychomycosis; Elevated blood pressure reading 03/28/[address] [address] Martin Burch MD chart prep 03/28/2025 Travel 03/14/2025 8:40 AM EDT Office [facility] [address] [address] Donna Hassan MD Seizure disorder (CMS/HCC) (Primary Dx); Elevated BP without diagnosis of hypertension; Coarse tremors 03/14/2025 Travel 03/11/[address] [address] Martin Burch MD Insurance Issue (Called pt about insurance from [place] and explained in order to be seen on Friday Pt had to bring in document stating [place] was [place] and or to bring in new health insurance cards. PT sister explained she cannot make it to Friday03/14/2025 Appointment and would like to reschedule. I let her know that we wont be able to book another appointment until we have proof of new insurance. ) 03/11/[address] [address] Naya Esposito FNP Chart Prep 03/09/[address] [address] Martin Burch MD ER Follow-up 03/08/2025 Telephone [facility] [address] [place] [address] Martin Burch MD Medication Question 03/04/2025 Telephone [facility] [place] [place] [address] Martin Burch MD ER Follow-up 03/03/2025 11:00 AM EDT Office [facility] [place] [place] [address] Irasema Augustin MD Syncope, unspecified syncope type (Primary Dx); Seizure disorder (CMS/HCC); Intellectual disability; Tremor; Exophthalmos, constant, right 03/03/2025 Orders Only [facility] External Provider, [facility] 03/03/2025 Travel 02/23/2025 Refill [facility] [address] [place] [address] Martin Burch MD 02/22/2025 11:00 AM EDT [facility] [address] [address] Martin Burch MD Axillary mass, right (Primary Dx); Intellectual disability; Seizure disorder (CMS/HCC); Elevated blood pressure reading 02/22/2025 Travel from Last 3 Months Immunizations Immunization Administration Dates Next Due Influenza, seasonal, injectable, preservative fr ee 03/11/2025 Pneumococcal Conjugate PCV 20 03/29/2025 Tdap 03/29/2025 Social History Tobacco Use Types Packs/Day Years Used Date Smoking Tobacco: Never Smokeless Tobacco: Never Tobacco Cessation:Counseling Given: Not Answered Alcohol Use Standard Drinks/Week Comments Never 0 (1 standard drink = 0.6 oz pur e alcohol) Housing Stability Answer Date Recorded What is your housing situation today? I have blanca rex 03/29/[address] you li ve. Do you have problems with any of the following? None of the above 03/29/2025 Food Insecurity Answer Date Recorded Within the past 12 months, y ou worried that your food would run out before you got money to buy more: Never True 03/29/2025 Within the past 12 months,th e food you bought just didn't last and you didn't have enough money to get more: Never True 12/2024 Transportation Answer Date Recorded In the past 12 months, has l ack of transportation kept you from medical appts, meetings, work or from getting things needed for daily living? No 03/29/2025 Utilities Answer Date Recorded In the past 12 months, has t he electric, gas, oil or water company threatened to shut off services in your home? No 03/29/2025 Internet Access Answer Date Recorded Internet Access Q1 Yes 03/29/2025 Internet Access Q2 Not on file 03/29/2025 Comments Unknown Sex and Gender Information Value Date Recorded Sex Assigned at Female 02/22/2025 10:57 AM EDT Legal Sex Female 10:53 AM EDT Gender Identity Female 02/22/2025 10:57 AM EDT Sexual Orientation Straight 02/22/2025 10 :57 AM EDT Last Filed Vital Signs Vital Sign Reading Time Taken Comments Blood Pressure 136/82 03/29/2025 3:32 PM EDT Pulse 81 03/29/2025 3:32 PM EDT Temperature 36.2 C (97.2 F) 03/29/2025 3:32 PM EDT Respiratory Rate 12 03/29/2025 3:32 PM EDT Oxygen Saturation 98% 03/29/2025 3:32 PM EDT Inhaled Oxygen Concentration - - Weight 93.7 kg (206 lb 9.6 oz) 03/29/2025 3:32 P M EDT Height 167.6 cm (5' 6 ) 03/29/2025 3:32 PM EDT Body Mass Index 33.35 03/29/2025 3:32 PM EDT Plan of Treatment Upcoming Encounters Date Type Department Care Team (Late st Contact Info) Description 06/27/2025 10:45 AM EST Office Visit [facility] [address] [place] [phone] Name, MD Martin [address] [place] [address] Health Maintenance Due Date Last Done Comments CT Colonography 1971 Colonoscopy 1971 Colorectal Cancer Screening 1971 Depression Screening 1971 FIT DNA/Cologuard 1971 FIT 1971 FOBT 1971 HIV Screening 1971 Sigmoidoscopy 1971 Hepatitis C Screening 1989 Hepatitis B Vaccines (1 of 3 - 19+ 3-dose series) 1990 Pap Smear 1992 Cervical Cancer Screening 2001 HPV/Cotest 2001 Zoster Vaccines (1 of 2) 2021 Alcohol/Substance Use Screening 03/29/2026 03/29/2025 Disability Screening 03/29/2026 03/29/2025 SDOH Screening 03/29/2026 03/29/2025 Tobacco Screening 03/29/2026 03/29/2025 Mammogram 02/25/2027 02/25/2025, 02/25/2025 DTaP/Tdap/Td Vaccines (2 - T d or Tdap) 03/29/2035 03/29/2025 RSV Patients and Patients Aged 60 years or older (1 - 1-dose 75+ series) 2046 COVID-19 Vaccine Completed 03/11/2025 Influenza Vaccine Completed 03/11/2025 Pneumococcal Vaccine: 50+ Years Completed 03/29/2025 HIB Vaccines Aged Out No longer eligi [...] Procedure Name Priority Date/Time Associated Diagnosis Comments TSH W/REFLEX TO FT4 Routine 04/14/2025 8:37 AM EDT CARBAMAZEPINE, TOTAL Routine 03/31/2025 9:38 AM EDT Seizure disorder (CMS/HCC) (HCC) CBC Routine 03/31/2025 9:38 AM EDT Syncope, unspecified syncope type BASIC METABOLIC PANEL Routine 03/31/2025 9:38 AM EDT Syncope, unspecified syncope type MR BRAIN WO CONTRAST Routine 03/18/2025 11:15 AM EDT Tremor Exophthalmos, constant, right CT HEAD WO CONTRAST Routine 03/03/2025 3 [...] (CMS/HCC) from Last 3 Months Results * TSH with Reflex to Free T4 (04/14/2025 8:37 AM EDT) TSH reflex Free T4 2.32 0.32 - 4.0 uIU/mL [facility] 04/14/2025 8:37 AM EDT 04/14/2025 8:37 AM EDT us Generic External Data Provider LAB BLOOD ORDERAB LES Final Result [facility] [address] [place] [phone] * (ABNORMAL) CBC (03/31/2025 9:38 AM EDT) White Blood Count 6.2 4.8 - 10.8 X10*3/uL [facility] Red Blood Count 4.34 4.20 - 5.50 X10*6/uL [facility] Hemoglobin 13.9 12.0 - 16.0 g/dl [facility] Hematocrit 42.7 37.0 - 47.0 % [facility] Mean Corpuscular Volume 98.4(H) 80.0 - 98.0 fL [facility] Mean Corpuscular Hemoglobin 32.0 27.0 - 33.0 pg [facility] Mean Corpuscular HGB Conc 32.6 31.0 - 35.0 g/dl [facility] Red Cell Distribution Width 12.7 11.0 - 16.0 % [facility] Platelet Count 248 160 - 400 X10*3/uL [facility] Mean Platelet Volume 11.0 9.4 - 12.3 fL [facility] NRBC Pct Auto 0.0 0.0 - 0.2 /100WBC [facility] NRBC Abs Auto 0.000 0.0 - 0.012 X10*3/uL [facility] Blood Venous blood specimen / Unknown 03/31/2025 9:38 AM EDT 03/31/2025 11:25 AM EDT us Irasema Augustin MD LAB BLOOD ORDERABLES Final Result Performing Organization Address City/[facility]/ZIP Co de Phone Number [facility] [address] [place] [phone] * (ABNORMAL) Carbamazepine, Total (03/31/2025 9:38 AM EDT) Only the most recent of2 resultswithin the time period is included. Carbamazepine Tegretol 4.8(L) 5.0 - 12.0 mcg/mL [facility] Blood Venous blood specimen / Unknown 03/31/2025 9:38 AM EDT 03/31/2025 11:03 AM EDT Martin Burch MD LAB BLOOD ORDERABLES Final Resul t Performing Organization Address City/[facility]/ZIP Co de Phone Number [facility] [address] [place] [phone] * (ABNORMAL) Basic Metabolic Panel (03/31/2025 9:38 AM EDT) Sodium 141 135 - 145 mmol/L [facility] Potassium 4.2 3.3 - 5.1 mmol/L [facility] Chloride 103 96 - 108 mmol/L [facility] Carbon Dioxide 32(H) 22 - 29 mmol/L [facility] Anion Gap 10(L) 12 - 20 [facility] Urea Nitrogen (BUN) 10 9 - 16 mg/dL [facility] Creatinine, Serum 0.66 0.5 - 1.4 mg/dL [facility] Estimated Glomerular Filt Rate >60 [facility] Comment:Chronic Kidney Disea se: Estimated GFR < 60 mL/min/1.42j4Pubwcl Kidney Disease: Estimated GFR < 15 mL/min/1.73m2 Glucose 88 60 - 115 mg/dL [facility] Calcium 9.2 8.4 - 10.2 mg/dL [facility] Blood Venous blood specimen / Unknown 03/31/2025 9:38 AM EDT 03/31/2025 11:09 AM EDT Irasema Augustin MD LAB BLOOD ORDERABLES Final Result Performing Organization Address City/[facility]/ZIP Co de Phone Number [facility] [address] [place] [phone] * MR Brain w/o Contrast (03/18/2025 11:15 AM EDT) Anatomical Region Laterality Modality Brain Magnetic Resonan ce 03/18/2025 11:1 5 AM EDT Narrative 03/18/2025 11:16 AM EDT [address] [address] Magnetic Resonance Report Signed Patient: Maria M Pimentel R#: [id number] : 1970 Acct:[id number] Age/Sex: 54 / F ADM Date: 03/17/25 Loc: HO.MRI Attending Dr: Irasema Augustin MD Ordering Physician: Irasema Augustin MD Date of Service: 03/17/25 Procedure(s): MR head/brain wo con Accession Number(s): [id number] cc: Irasema Augustin MD; Name,Martin WHITMORE Reason for Exam: right exopthalmous, isolated left arm tremor CLINICAL HISTORY: right exopthalmous, isolated left arm tremor MR Brain without gadolinium Comparison: None provided Findings: No restricted diffusion. No intra-axial mass or hemorrhage. No midline shift. No hydrocephalus. Vascular flow voids are intact. There is atrophy and gliosis involving the bilateral occipital lobes and to a lesser degree the bilateral frontal lobes near the vertex. Orbital contents are unremarkable. The sinuses and mastoid air cells are clear. No focal bone lesion. IMPRESSION: No acute findings. Bilateral frontal-occipital atrophy and gliosis. This document has been electronically signed by: Nils Victor MD on 03/18/2025 11:15:33 Dictated By: Nils Victor MD Signed By: <Electronically signed by Nils Victor MD in OV> 03/18/25 1116 DD/ 1115 TD/TT: 03/18/25 1115 Sail Repair Person: Procedure Note Donotuseinterpreter, Image - 03/18/[address] [address] Magnetic Resonance Report Signed Patient: Lorenza Pimnetel R#: [id number] : 1970Acct:[id number] Age/Sex: 54 / FADM Date: 03/17/25 Loc: HO.MRI Attending Dr: Irasema Augustin MD Ordering Physician: Irasema Augustin MD Date of Service: 03/17/25 Procedure(s): MR head/brain wo con Accession Number(s): [id number] cc: Irasema Augustin MD; Name,Martin WHITMORE Reason for Exam: right exopthalmous, isolated left arm tremor CLINICAL HISTORY: right exopthalmous, isolated left arm tremor MR Brain without gadolinium Comparison: None provided Findings: No restricted diffusion. No intra-axial mass or hemorrhage. No midline shift. No hydrocephalus. Vascular flow voids are intact. There is atrophy and gliosis involving the bilateral occipital lobes and to a lesser degree the bilateral frontal lobes near the vertex. Orbital contents are unremarkable. The sinuses and mastoid air cells are clear. No focal bone lesion. IMPRESSION: No acute findings. Bilateral frontal-occipital atrophy and gliosis. This document has been electronically signed by: Nils Victro MD on 03/18/2025 11:15:33 Dictated By: Nils Victor MD Signed By: <Electronically signed by Nils Victor MD in OV> 03/18/25 1116 DD/ 1115 TD/TT: 03/18/25 1115 Sail Repair Person: Irasema Augustin MD IMG MRI PROCEDURES Final R esult * CT Head w/o Contrast (03/03/2025 3:35 PM EDT) Anatomical Region Laterality Modality Head, Neck Computed Tomogra phy 03/03/2025 3:35 PM EDT Narrative 03/03/2025 3:58 PM EDT [place] [address] [address] Scan Report Signed Patient: Maria M Pimentel#: [id number] : 1970 Acct:[id number] Age/Sex: 54 / F ADM Date: 03/03/25 Loc: HO.ED Attending Dr: Ordering Physician: Aurelia Bolivar DO Date of Service: 03/03/25 Procedure(s): CT head/brain wo IV con Accession Number(s): [id number] cc: Aurelia Bolivar DO; Name,Martin WHITMORE Report Number: [id number]: Total DLP = 604.00 mGy-cm Reason for [...] Signed By: <Electronically signed by Pedro Pablo aRmos MD in OV> 03/03/25 1555 DD/ 1535 TD/TT: 03/03/25 1547 Sail Repair Person: Procedure Note Donotuseinterpreter, Image - 03/03/[address] [address] [address] Scan Report Signed Patient: Lorenza Pimentel R#: [id number] : 1970Acct:[id number] Age/Sex: 54 / FADM Date: 03/03/25 Loc: HO.ED Attending Dr: Ordering Physician: Aurelia Bolivar DO Date of Service: 03/03/25 Procedure(s): CT head/brain wo IV con Accession Number(s): [id number] cc: Aurelia Bolivar ; Name,Martin WHITMORE Report Number: [id number]: Total DLP = 604.00 mGy-cm Reason for [...] 03/03/25 1555 DD/ 1535 TD/TT: 03/03/25 1547 Sail Repair Person: [facility] External Provider IMG CT PROCEDURES Final Result * XR Chest 2 Views (03/03/2025 2:30 PM EDT) Anatomical Region Laterality Modality Chest Radiographic Roya ging 03/03/2025 2:30 PM EDT Narrative 03/03/2025 2:37 PM EDT [address] [address] XRay Report Signed Patient: Maria M Pimentel R#: [id number] : 1970 Acct:[id number] Age/Sex: 54 / F ADM Date: 03/03/25 Loc: HO.ED Attending Dr: Ordering Physician: Aurelia Bolivar DO Date of Service: 03/03/25 Procedure(s): XR chest 2V Accession Number(s): [id number] cc: Aurelia Bolivar DO; Name,Martin WHITMORE Reason [...] 03/03/25 1435 DD/ 1430 TD/TT: 03/03/25 1432 Sail Repair Person: Procedure Note Donotuseinterpreter, Image - 03/03/[address] [address] XRay Report Signed Patient: Lorenza Pimentel R#: [id number] : 1970Acct:[id number] Age/Sex: 54 / FADM Date: 03/03/25 Loc: .ED Attending Dr: Ordering Physician: Aurelia Bolivar DO Date of Service: 03/03/25 Procedure(s): XR chest 2V Accession Number(s): [id number] cc: Aurelia Bolivar DO; Martin Burch MD Reason for Exam: chest pain EXAMINATION: XR [...] 03/03/25 1435 DD/ 1430 TD/TT: 03/03/25 1432 Sail Repair Person: [facility] External Provider IMG XR PROCEDURES Final Result [...] AM EDT Narrative 02/25/2025 1:17 PM EDT [facility] [address] [place] [address] Ultrasound Report Signed with Addenda Patient: Maria M Pimentel#: [id number] : 1970 Acct:[id number] Age/Sex: 54 / F ADM Date: 02/25/25 Loc: MAMMO Attending Dr: Martin Burch MD Ordering Physician: NameMartin MD Date of Service: 02/25/25 Procedure(s): US breast RT limited mamm only Accession Number(s): [id number] cc: Name,Martin WHITMORE Reason for Exam: Right axillary mass ADDENDUM [...] 02/25/25 1315 DD/ 1043 TD/TT: 02/25/25 1047 Sail Repair Person: Procedure Note Donotuseinterpreter, Image - 03/08/2025 [facility] [address] [place], [place] [address] Ultrasound Report Signed with Addenda Patient: Lorenza Pimentel Omi#: [id number] : 1970Acct:[id number] Age/Sex: 54 / FADM Date: 02/25/25 Loc: HO.MAMMO Attending Dr: Martin Burch MD Ordering Physician: NameMartin MD Date of Service: 02/25/25 Procedure(s): US breast RT limited mamm only Accession Number(s): [id number] cc: Martin uBrch MD Reason for Exam: Right axillary mass [...] 02/25/25 1315 DD/ 1043 TD/TT: 02/25/25 1047 Sail Repair Person: us Martin Burch MD IMG US PROCEDURES Edited Result - Final * BI Mammogram Diagnostic Tomosynthesis Bilateral (02/25/2025 9:57 AM EDT) Anatomical Region Laterality Modality Breast Bilateral Mammography 02/25/2025 9:57 AM EDT Narrative 02/25/2025 1:17 PM EDT [facility] [address] [place] [address] Mammography Report Signed with Addenda Patient: Maria M Pimentel#: [id number] : 1970 Acct:[id number] Age/Sex: 54 / F ADM Date: 02/25/25 Loc: LEEANNEO Attending Dr: Martin Burch MD Ordering Physician: Martin Burch MD Results: 1Negative Date of Service: 02/25/25 Follow Up: 1 Year From Orig inal Mammogram Procedure(s): MM tomosynthesis diagnostic BI Accession Number(s): [id number] cc: Martin Burch MD Reason For Exam: [...] 02/25/25 1315 DD/ 0957 TD/TT: 02/25/25 1014 Sail Repair Person: Procedure Note Donotuseinterpreter, Image - 03/08/20[facility] [address] [place] [address] Mammography Report Signed with Addenda Patient: Lorenza Pimentel R#: [id number] : 1970Acct:[id number] Age/Sex: 54 / FADM Date: 02/25/25 Loc: HO.MAMMO Attending Dr: Martin Burch MD Ordering Physician: Martin Burchesults: 1Negative Date of Service: 02/25/25Follow Up: 1 Year From Orig ina Mammogram Procedure(s): MM tomosynthesis diagnostic BI Accession Number(s): [id number] cc: Martin Burch MD Reason For Exam: [...] Henderson MD 02/25/2025 01:15 PM EDT RP Workstation: [employer] Dictated By: Charli Henderson MD Signed By: <Electronically signed by Charli Henderson MD in OV> 02/25/25 1315 DD/ 0957 TD/TT: 02/25/25 1014 Sail Repair Person: us Martin Burch MD IM BI PROCEDURES Edited Result - Final * (ABNORMAL) CBC auto differential (02/22/2025 12:25 PM EDT) White Blood Count 7.5 4.8 - 10.8 X10*3/uL [facility] Red Blood Count 4.32 4.20 - 5.50 X10*6/uL [facility] Hemoglobin 14.0 12.0 - 16.0 g/dl [facility] Hematocrit 42.5 37.0 - 47.0 % [facility] Mean Corpuscular Volume 98.4(H) 80.0 - 98.0 fL [facility] Mean Corpuscular Hemoglobin 32.4 27.0 - 33.0 pg [facility] Mean Corpuscular HGB Conc 32.9 31.0 - 35.0 g/dl [facility] Red Cell Distribution Width 12.8 11.0 - 16.0 % [facility] Platelet Count 223 160 - 400 X10*3/uL [facility] Mean Platelet Volume 11.1 9.4 - 12.3 fL [facility] Neutrophils Percent Auto 74.9(H) 45 - 73 % [facility] Imm Gran Pct Auto 0.4 0.0 - 0.4 % [facility] Lymphocytes Percent Auto 17.3(L) 20 - 40 % [facility] Monocytes Percent Auto 7.3 2 - 11 % [facility] Eosinophils Percent Auto 0.0 0 - 4 % [facility] Basophils Percent Auto 0.1 0 - 2 % [facility] NRBC Pct Auto 0.0 0.0 - 0.2 /100WBC [facility] Neutrophils Absolute Auto 5.6 2.0 - 8.3 x10*3/uL [facility] Imm Gran Abs Auto 0.03 0.00 - 0.03 X10*3/uL [facility] Lymphocytes Absolute Auto 1.3 1.2 - 4.9 X10*3/uL [facility] Monocytes Absolute Auto 0.6 0.1 - 1.2 X10*3/uL [facility] Eosinophils Absolute Auto 0.0 0.0 - 0.4 X10*3/uL [facility] Basophils Absolute Auto 0.0 0.0 - 0.2 X10*3/uL [facility] NRBC Abs Auto 0.000 0.0 - 0.012 X10*3/uL [facility] Blood Venous blood specimen / Unknown 02/22/2025 12:25 PM EDT 02/22/2025 1:17 PM EDT us Martin Burch MD LAB BLOOD ORDERABLES Final Resul t Performing Organization Address City/[facility] Co de Phone Number [facility] [address] [place] [phone] * Phenobarbital (02/22/2025 12:25 PM EDT) Phenobarbital 22.3 10.0 - 40.0 mcg/mL [facility] Blood Venous blood specimen / Unknown 02/22/2025 12:25 PM EDT 02/22/2025 12:47 PM EDT us Martin Burch MD LAB BLOOD ORDERABLES Final Resul t Performing Organization Address [facility] Co de Phone Number [facility] [address] [place] [phone] * (ABNORMAL) Comprehensive Metabolic Panel (02/22/2025 12:25 PM EDT) Sodium 138 135 - 145 mmol/L [facility] Potassium 4.4 3.3 - 5.1 mmol/L [facility] Chloride 102 96 - 108 mmol/L [facility] Carbon Dioxide 29 22 - 29 mmol/L [facility] Anion Gap 11(L) 12 - 20 [facility] Urea Nitrogen (BUN) 11 9 - 16 mg/dL [facility] Creatinine, Serum 0.70 0.5 - 1.4 mg/dL [facility] Estimated Glomerular Filt Rate >60 [facility] Comment:Chronic Kidney Disea se: Estimated GFR < 60 mL/min/1.73h5Xzrrby Kidney Disease: Estimated GFR < 15 mL/min/1.73m2 Glucose 100 60 - 115 mg/dL [facility] Calcium 8.7 8.4 - 10.2 mg/dL [facility] Bilirubin, Total 0.2 0.0 - 1.0 mg/dL [facility] Aspartate Amino Transferase 25 5 - 31 U/L [facility] Alanine Aminotransferase 19 0 - 31 U/L [facility] Total Protein 7.3 6.5 - 8.0 g/dL [facility] Albumin Level 4.0 3.5 - 5.0 g/dL [facility] Alkaline Phosphatase 89 39 - 117 U/L [facility] Blood Venous blood specimen / Unknown 02/22/2025 12:25 PM EDT 02/22/2025 1:18 PM EDT us Martin Name LAB BLOOD ORDERABLES Final Resul t [facility] [address] [place] [phone] from Last 3 Months Insurance [facility] [employer]AND[employer] MEDICARE Care Teams Affiliate Marketing Specialist Relationship Specialty Start Date End Date Name, MD Martin [address] [place] [phone] PCP - General Internal Medicine 02/22/25
--- OUTSIDE RECORDS SUMMARY | 2025-05-02 16:51 | XMS_ITS | Clinical Summary ---
Author Organization [facility] Address [address] [place] [phone] Phone Care Team Providers Care Box Closing Machine Operator Name Role Phone Unavailable Primary Care Provider Unavailabl e Social History Tobacco Use Types Packs/Day Years Used Date Smoking Tobacco: Never Assessed Comments Unknown Sex and Gender Information Value Date Recorded Sex Assigned at Not on file Legal Sex Female 8:17 AM EDT Gender Identity Not on file Sexual Orientation Not on file Plan of Treatment Upcoming Encounters Date Type Department Care Team ([facility] Contact Info) Description 06/06/2025 10:15 AM EST Office Visit Orthopedic Surgery - [place] [phone] [phone] Pablo Higgins, DPM [address] [phone] Health Maintenance Due Date Last [...]
== END 2025-05-02 15:04 | disposition home or self-care (01) ==
LOC: HO.HGS 14:30
PROVIDERS: PCP Internal Medicine Geriatric Medicine; Visit Provider Surgery
DX: Q83.1 Accessory breast (principal)
CPT/HCPCS: 99204

== ENCOUNTER → 2025-05-02 14:30 | Outpatient (BNVA) | payer OTHER, SELFPAY | PROVIDERS: PCP Internal Medicine Geriatric Medicine; Visit Provider Surgery | DX: Q83.1 Accessory breast (principal) | CPT/HCPCS: 99202 ==

== ENCOUNTER 2025-06-07 13:47 | Outpatient (REF) | payer OTHER, SELFPAY ==
--- OUTSIDE RECORDS SUMMARY | 2025-06-06 10:15 | XMS_ITS | Encounter Summary ---
Author Organization [facility] Address [address] [place] [address] Care Team Providers Care Financial Services Sales Representative Name Role Phone Unavailable Primary Care Provider Unavailabl e Reason for Visit * Reason Comments Consult Tinea unguium * Consultation (Routine) - Authorized Specialty Diagnoses / Procedures Referred By Contact Referred To Contact Podiatry / Orthopaedic Surgery Diagnoses Tinea unguium Taylor Merino NP 230 [facility] 1 [place] [address] Phone: tel: fax: Pablo Higgins DPM [address] [address] Phone: tel: fax: Referral ID Status Reason Start Date Expiration Date Visits Requested Visits Authorized [id number] Authorized Specialty Services Required 03/31/2025 03/31/2026 1 1 Encounter Details Date Type Department Care Team ([facility] Contact Info) Description 06/06/2025 10:15 AM EST Office Visit Orthopedic Surgery - [place] [address] [address] Pablo Higgins DPM [address] [address] Dermatophytosis of nail (Primary Dx); Tinea pedis of both feet; Pain in toe of right foot; Pain in toe of left foot; Difficulty walking; Ingrowing nail Social History Tobacco Use Types Packs/Day Years Used Date Smoking Tobacco: Never Assessed Comments Unknown Sex and Gender Information Value Date Recorded Sex Assigned at Not on file Legal Sex Female 8:17 AM EDT Gender Identity Not on file Sexual Orientation Not on file documented as of this encounter Ordered Prescriptions Prescription Sig Dispense Quantity Refills Last Filled Start Date End Date ketoconazole (NIZORAL) 2 % cream Apply topically 1 (one) time each day. 30 g 2 06/06/2025 documented in this encounter Progress Notes * Pablo Higgins DPM - 06/06/2025 10:15 AM EST Last PCP visit:Referring MD: Taylor Merino NP 03/29/25 IDENTIFIER: Case Smith is a 54 y.o. year old female who presents for consultation. CC: Foot pain HPI: Case Smith is a 54 y.o. 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 Pt in NAD. CARDIOLOGY: pt denies chest pain, palpitations LUNGS: pt denies shortness of breath MUSCULOSKELETAL: See HPI, otherwise no joint pain or swelling, back pain, or muscle pain. SKIN: see HPI, otherwise no lesions, rash or itching NEURO: No persistent headache, weakness or numbness The remainder of the review of systems is noncontributory PAST MEDICAL HISTORY: Problem List[1] SOCIAL HISTORY: Social History Tobacco Use Smoking status: Not on file Smokeless tobacco: Not on file Substance Use Topics Alcohol use: Not on file ACTIVE MEDICATIONS: Medications Taking[2] ALLERGIES: Allergies[3] PHYSICAL EXAM: There were no vitals taken for this visit. PODIATRIC EXAMINATION: GENERAL: Patient appears well nourished, with NAD. VASCULAR: Dorsalis pedis pulses are 2/4 bilaterally and Posterior tibial pulses are 2/4 bilaterally. Capillary filling time within normal limits the digits. No pallor on elevation or rubor on dependency. No varicosities. Denies rest pain or claudication pain. NEUROLOGICAL: Sharp/dull sensation intact, protective sensation intact 10/10 with Ipswitch touch test bilaterally, vibratory sensation intact to the tibial tuberosity. ORTHOPEDIC: Good muscle strength 5/5 of all flexors and extensors. Dorsi flexion of ankle ,10 degrees, plantar flexion WNL. No muscle atrophy. DERMATOLOGICAL: Toenails: Left Toenail(s) 1-5: subungual debris, discoloration, hypertrophic, elongation, mycotic appearance, onychomycosis, pain and thickening. Right Toenail(s) 1-5: subungual debris, discoloration, hypertrophic, elongation, mycotic appearance, onychomycosis, pain and thickening. Annular scaling bilateral feet moccasin distribution Skin thinning texture shiny appearance diffuse hyperpigmentation bilaterally pedal hair decreased Severe abnormal curvature both great toenails ingrowth medial lateral nail fold both great toes BIOMECHANICS: Ankle ROM WNL, STJ ROM wnl, MTJ ROM wnl, 1st MPJ ROM wnl. IMAGING: IMPRESSION: 1. Dermatophytosis of nail 2. Tinea pedis of both feet 3. Pain in toe of right foot 4. Pain in toe of left foot 5. Difficulty walking 6. Ingrowing nail PLAN: Pt was seen and examined, history reviewed. Treatment options are ingrown embedded toenail discussed and reviewed Minor surgical procedure of nail removal with matrixectomy was discussed and reviewed versus nail removal discussed with patient risks of nail procedure including scar tissue formation reoccurrence loss of more nail deformity cosmetic changes that are undesirable Ketoconazole prescribed for dermatophytes of nails and skin Nails debrided below without mass topical therapy and for symptomatic relief of chronic ingrown embedded toenails Follow-up in 1 to 3 months Debridement of mycotic toenails 6-10: Verbal informed consent was obtained from the patient. Greater than 6 nails were aseptically debrided in thickness and length with nail nippers Pablo Higgins DPM [1] There is no problem list on file for this patient. [2] Outpatient Medications Marked as Taking for the 06/06/25 encounter (Office Visit) with Pablo Higgins DPM Medication Sig Dispense Refill carBAMazepine (TEGretol) 100 mg chewable tablet Chew 1 tablet (100 mg total) 3 times daily. loratadine (CLARITIN) 10 mg tablet Take 1 tablet (10 mg total) by mouth daily. Nyamyc 100,000 unit/gram powder APPLY TO THE AFFECTED AREA(S) (UNDER BREAST) THREE TIMES DAILY UNTIL RASH GONE [3] No Known Allergies documented in this encounter Plan of Treatment Not on file documented as of this encounter Visit Diagnoses Diagnosis Dermatophytosis of nail- Primary Tinea pedis of both feet Pain in toe of right foot Pain in soft tissues of limb Pain in toe of left foot Pain in soft tissues of limb Difficulty walking Difficulty in walking Ingrowing nail documented in this encounter Historical Medications * This list may reflect changes made after this encounter. [facility] 100,000 unit/gram powder APPLY TO THE AFFECTED AREA(S) (UNDER BREAST) THREE TIMES DAILY UNTIL RASH GONE 03/28/2025 loratadine (CLARITIN) 10 mg tablet Take 1 tablet (10 mg total) by mouth daily. 03/29/2025 03/29/2026 carBAMazepine (TEGretol) 100 mg chewable tablet Chew 1 tablet (100 mg total) 3 times daily. 03/29/2025 03/29/2026 added in this encounter Orders Outpatient Referral Count Last Ordered Date Fir st Ordered Date AMB REFERRAL TO PODIATRY 1 06/06/2025 documented in this encounter
--- NOTE | ~2025-06-07 | XR_ITS ---
EXAMINATION: XR HUMERUS RIGHT HISTORY: pain over right biceps x months COMPARISON: There are no prior studies available for comparison. FINDINGS: AP and lateral views of the right humerus are submitted. Osseous mineralization is normal. There is no fracture or dislocation. The visualized shoulder and elbow joint spaces are preserved. The soft tissues are unremarkable. XR/XR humerus RT IMPRESSION: Unremarkable examination of the right humerus. Electronically signed by: Milad Benítez MD 06/07/2025 03:01 PM [facility]ALVA
--- OUTSIDE RECORDS SUMMARY | 2025-06-07 14:20 | XMS_ITS | Encounter Summary ---
Author Organization [employer] Address [address] [facility] 7t [place] [address] Care Team Providers Care Short Piece Handler Name Role Phone Name, Martin WHITMORE Primary Care Provider [phone] Reason for Referral * Consultation (Routine) - Closed Specialty Diagnoses / Procedures Referred By Contac t Referred To Contact Physical Therapy Diagnoses Right arm pain Irasema Augustin MD 230 [place] [address] Phone: tel: fax: [facility] [address] [place] [address] Phone: tel: fax: Referral ID Status Reason Start Date Expiration Date V isits Requested Visits Authorized [id number] Closed Specialty Services Required 06/07/2025 06/07/2026 1 1 Encounter Details Date Type Department Care Team (Late st Contact Info) Description 06/07/2025 2:20 PM EST Office Visit [facility] 230 [place], [place] [phone] Irasema Augustin MD 230 [place], [place] [phone] Urine malodor (Primary Dx); Right arm pain Social History Tobacco Use Types Packs/Day Years Used Date Smoking Tobacco: Never Smokeless Tobacco: Never Alcohol Use Standard Drinks/Week Comments Never 0 (1 standard drink = 0.6 oz pur e alcohol) Housing Stability Answer Date Recorded What is your housing situation today? I have blanca sing 03/29/[address] you li [...] Reading Time Taken Comments Blood Pressure 136/82 06/07/2025 1:09 PM EST Pulse 99 06/07/2025 1:09 PM EST Temperature 37.2 C (98.9 F) 06/07/2025 1:09 PM EST Respiratory Rate 20 06/07/2025 1:09 PM EST Oxygen Saturation 98% 06/07/2025 1:09 PM EST Inhaled Oxygen Concentration - - Weight 98.5 kg (217 lb 3.2 oz) 06/07/2025 1:09 P M EST Height - - Body Mass Index 35.06 03/29/2025 3:32 PM EDT documented in this encounter Patient Instructions * Patient Instructions* Irasema Augustin MD - 06/07/2025 2:20 PM EST To schedule your physical therapy at [facility] please call [phone]. Para programar zhao therapia physica m[facility]ica en [facility], por favor justin britt [phone]. documented in this encounter Progress Notes * Irasema Augustin MD - 06/07/2025 2:20 PM EST Images from the original note were not included. Subjective Maria M Khalil, age 54 years, sister is primary historian with patient Right arm pain Reports pain in the right arm for several months. Describes the pain as affecting the entire arm, with particular emphasis on the biceps region. Denies any specific trauma or injury to the arm. States this is the first time seeking medical attention for this issue. No mention of prior treatments orinterventions for this pain. Malodorous urine Sister reports that her urine has had a strong, unpleasant odor for approximately one week. Denies dysuria or pain with urination. No associated symptoms such as fever or abdominal pain reported. Odor noted when sister bathing patient. Vaginal odor Her sister, who is her caregiver, reports that after bathing, there is a persistent strong vaginal odor. Caregiver notes that she instructs Maria M to wash thoroughly with water and soap, but the odor persists. No history of sexual activity or sexually transmitted infections reported. No current complaints of vaginal pain or discomfort. Objective Blood pressure 136/82, pulse 99, temperature 98.9 ??F (37.2 ??C), temperature source Oral, resp. rate 20, weight 217 lb 3.2 oz (98.5 kg), SpO2 98%. Physical Exam Musculoskeletal: Right upper arm: Tenderness present. No swelling, edema, deformity, lacerations or bony tenderness. Arms: Comments: Spasm and tenderness over lateral right bicep. Strenth of security services manager and hand 5/5/ Sensation intackt medial, radial and ulner nerve. No shoulder pain. Shoulder with normal ROM Biceps muscle spasm and arm pain: - Biceps muscle spasm identified as the cause of arm pain. - Prescribed diclofenac cream for topical analgesia. Recommended physical therapy for muscle rehabilitation. Suggested massage with cream, use of warm towel or heating pad. Ordered X-ray of the arm to rule out underlying bone pathology. Malodorous urine and possible genitourinary infection: - Malodorous urine with possible urinary tract infection or bacterial vaginosis considered. - Ordered urinalysis and urine culture. Ordered vaginal swab for bacterial vaginosis testing. Instructed to clean with wipe prior to sample collection. Addendum: XR/XR humerus RT IMPRESSION: Unremarkable examination of the right humerus. This note was drafted using Ambient (AI) technology. The patient/patient's guardian has been informed and has consented to the use of this technology: Yes documented in this encounter Plan of Treatment Upcoming Encounters Date Type Department Care Team (Late st Contact Info) Description 06/27/2025 10:45 AM EST Office Visit [facility] [address] [place] [address] Name, MD Martin [address] [place] [address] Scheduled Orders Name Type Priority Associated Diagnoses Orde r Schedule Bacterial Vaginosis, Yeast and Trich Microbiology Routine Urine malodor Expected: 06/07/2025 (Approximate), Expires: 06/07/2026 Urinalysis, Complete, with Reflex to Culture Lab Routine Urine malodor Expected: 06/07/2025 (Approximate), Expires: 06/07/2026 Scheduled Referrals Name Type Priority Associated Diagnoses Orde r Schedule Referral to Physical Therapy Outpatient Referral Routine Right arm pain Expected: 06/07/2025 (Approximate), Expires: 06/07/2026 documented as of this encounter Procedures Procedure Name Priority Date/Time Associated Diagnosis Comments XR HUMERUS RIGHT Routine 06/07/2025 2:09 PM EST Right arm pain documented in this encounter Results * XR Humerus Right (06/07/2025 2:09 PM EST) Anatomical Region Laterality Modality Upper Extremities, Humerus Right Radio graphic Imaging 06/07/2025 2:09 PM EST Narrative 06/07/2025 3:04 PM EST [facility] 230 [place] [address] XRay Report Signed Patient: Maria M Pimentel R#: [id number] : 1970 Acct:[id number] Age/Sex: 54 / F ADM Date: 06/07/25 Loc: NILDAX Attending Dr: Irasema Augustin MD Ordering Physician: Irasema Augustin MD Date of Service: 06/07/25 Procedure(s): XR humerus RT Accession Number(s): [id number] cc: Irasema Augustin MD Reason for Exam: pain over right biceps x months EXAMINATION: XR HUMERUS RIGHT HISTORY: pain over right biceps x months COMPARISON: There are no prior studies available for comparison. FINDINGS: AP and lateral views of the right humerus are submitted. Osseous mineralization is normal. There is no fracture or dislocation. The visualized shoulder and elbow joint spaces are preserved. The soft tissues are unremarkable. XR/XR humerus RT IMPRESSION: Unremarkable examination of the right humerus. Electronically signed by: Milad Benítez MD 06/07/2025 03:01 PM [facility] Dictated By: Milad Benítez MD Signed By: <Electronically signed by Milad Benítez MD in OV> 06/07/25 1501 DD/ 1409 TD/TT: 06/07/25 1438 Java Golden Gate Developer: Procedure Note Donotuseinterpreter, Image - 06/07/[address] [address] XRay Report Signed Patient: Lorenza Pimentel R#: [id number] : 1970Acct:[id number] Age/Sex: 54 / FADM Date: 06/07/25 Loc: CX Attending Dr: Irasema Augustin MD Ordering Physician: Irasema Augustin MD Date of Service: 06/07/25 Procedure(s): XR humerus RT Accession Number(s): [id number] cc: Irasema Augustin MD Reason for Exam: pain over right biceps x months EXAMINATION: XR HUMERUS RIGHT HISTORY: pain over right biceps x months COMPARISON: There are no prior studies available for comparison. FINDINGS: AP and lateral views of the right humerus are submitted. Osseous mineralization is normal. There is no fracture or dislocation. The visualized shoulder and elbow joint spaces are preserved. The soft tissues are unremarkable. XR/XR humerus RT IMPRESSION: Unremarkable examination of the right humerus. Electronically signed by: Milad Benítez MD 06/07/2025 03:01 PM EST Dictated By: Milad Benítez MD Signed By: <Electronically signed by Milad Benítez MD in OV> 06/07/25 1501 DD/ 1409 TD/TT: 06/07/25 1438 Java Golden Gate Developer: Irasema Augustin MD IMG XR PROCEDURES Edited R esult - Final documented in this encounter Visit Diagnoses Diagnosis Urine malodor- Primary Right arm pain Pain in soft tissues of limb documented in this encounter Care Teams Short Piece Handler Relationship Specialty Start Date End Date Name, MD Martin 230 [place] [address] PCP - General Internal Medicine 02/22/25 documented as of this encounter
--- OUTSIDE RECORDS SUMMARY | 2025-06-07 18:00 | XMS_ITS | Encounter Summary ---
Author Organization [employer] Address [address] [facility] [address] 7[address] [place] [address] Care Team Providers Care Software Quality Tester Name Role Phone Name, Martin WHITMORE Primary Care Provider [phone] Encounter Details Date Type Department Care Team ([facility] st Contact Info) Description 06/07/2025 Results Follow-Up [facility] 230 [place] [address] Irasema Augustin MD 230 [place] [address] XR Humerus Right Social History Tobacco Use Types Packs/Day Years Used Date Smoking Tobacco: Never Smokeless Tobacco: Never Alcohol Use Standard Drinks/Week Comments Never 0 (1 standard drink = 0.6 oz pur e alcohol) Housing Stability Answer Date Recorded What is your housing situation today? I have blanca goodman 03/29/[address] you li [...] Description 06/27/2025 10:45 AM EST Office Visit [facility] [address] [place] [address] Martin Burch MD [address] [place] [address] documented as of this encounter Visit Diagnoses Not on filedocumented in this encounter Care Teams Software Quality Tester Relationship Specialty Start Date End Date Martin Burch MD [address] [place] [address] PCP - General Internal Medicine 02/22/25 documented as of this encounter
--- OUTSIDE RECORDS SUMMARY | 2025-06-07 18:00 | XMS_ITS | Encounter Summary ---
Author Organization [employer] Address [address] [facility] [address] 7[address] [place] [address] Care Team Providers Care Cashier Gambling Name Role Phone Name, Martin WHITMORE Primary Care Provider [phone] Encounter Details Date Type Department Care Team (Latest Contact Info) Description 06/07/2025 Travel Social History Tobacco Use Types Packs/Day [...] Description 06/27/2025 10:45 AM EST Office Visit [facility] [address] [place] [address] Name, MD Martin [address] [place] [address] documented as of this encounter Visit Diagnoses Not on filedocumented in this encounter Care Teams Cashier Gambling Relationship Specialty Start Date End Date Name, MD Martin [address] [place] [address] PCP - General Internal Medicine 02/22/25 documented as of this encounter
--- OUTSIDE RECORDS SUMMARY | 2025-06-07 18:00 | XMS_ITS | Clinical Summary ---
Author Organization [facility] Address [address] [place] [address] Phone Care Team Providers Care Manager Integration Name Role Phone Unavailable Primary Care Provider Unavailabl e Allergies No known active allergies Medications carBAMazepine (TEGretol) 100 mg chewable tablet Chew 1 tablet (100 mg total) 3 times daily. 03/29/20 26 Active loratadine (CLARITIN) 10 mg tablet Take 1 tablet (10 mg total) by mouth daily. 5 03/29/20 26 Active Nyamyc 100,000 unit/gram powder APPLY TO THE AFFECTED AREA(S) (UNDER BREAST) THREE TIMES DAILY UNTIL RASH GONE Active ketoconazole (NIZORAL) 2 % cream Apply topically 1 (one) time each day. 30 g 2 5 Active Encounters Date Type Department Care Team Description 06/06/2025 10:15 AM EST Office Visit Orthopedic Surgery [facility] [address] [phone] Pablo Higgins, DPM Dermatophytosis of nail (Primary Dx); Tinea pedis of both feet; Pain in toe of right foot; Pain in toe of left foot; Difficulty walking; Ingrowing nail from Last 3 Months Social History Tobacco Use Types Packs/Day Years Used Date Smoking Tobacco: Never Assessed Comments Unknown Sex and Gender Information Value Date Recorded Sex Assigned at Not on file Legal Sex Female 8:17 AM EDT Gender Identity Not on file Sexual Orientation Not on file Plan of Treatment Health Maintenance Due Date Last Done Comments Breast Cancer Screening 1970 Colorectal Cancer Screening: Colonoscopy 1970 Hepatitis B Vaccines (1 of 3 - 19+ 3-dose series) 1990 Cervical Cancer Screening: P ap Smear 1992 Zoster Vaccines (1 of 2) 2021 Depression Screening 06/23/2024 HIV Screening 03/31/2025 Hepatitis C Screening 03/31/2025 Medicare Annual Wellness Visit 03/31/2025 Social Influencers of Health Screening 03/31/2025 DTaP,Tdap,and Td Vaccines (2 - Td or Tdap) 03/29/2035 03/29/2025 RSV Immunization Adult Patie nts (1 - 1-dose 75+ series) 2046 COVID-19 Vaccine Completed 03/11/2025 Influenza Vaccine Completed 03/11/2025 Pneumococcal Vaccine: 50+ Years Completed HIB Vaccines Aged Out No longer eligi [...] this topic Insurance MEDICARE MEDICAID - [place] [facility] OPT[facility] Member Subscriber Plan / Payer (Ef fective 2025-Present) Name:Maria M [place] Relation to Subscriber:Self Name:Maria M [place] Payer ID:[id number] Group ID:Not on file Type:Not on file Address: [address] [place] [phone]
--- OUTSIDE RECORDS SUMMARY | 2025-06-07 18:00 | XMS_ITS | Encounter Summary ---
Author Organization [employer] Address 75 [facility] 7[address] [place] [address] Care Team Providers Care Lining Marker Name Role Phone Name, Martin WHITMORE Primary Care Provider [phone] Reason for Visit * Reason Onset Date Comments Med Refill 06/02/2025 Encounter Details Date Type Department Care Team ([facility] st Contact Info) Description 06/02/2025 Telephone [facility] MED[facility]INE [address] [place] [address] Name, MD Martin [address] [place] [address] Med Refill Social History Tobacco Use Types Packs/Day Years [...] t he electric, gas, oil or water [employer] threatened to shut off services in your [...] encounter Miscellaneous Notes * Telephone Encounter - Renuka Rios LPN - 06/03/2025 7:58 AM EST Script was sent to [facility] on 03/29/25 #30 with 11 refills. * Telephone Encounter - Alix Marsh - 06/02/2025 4:51 PM EST TC from pt requesting medication refill. Medications needing refill : oratadine (Claritin) 10 MG tablet To be sent to: [facility] - [place], [place] - [address] [place] [address] documented in this encounter Plan of Treatment Upcoming Encounters Date Type Department Care Team (Late st Contact Info) Description 06/27/2025 10:45 AM EST Office Visit [facility] MEDICINE [address] [place] [address] Name, MD Martin [address] [place] [address] documented as of this encounter Visit Diagnoses Not on filedocumented in this encounter Care Teams Lining Marker Relationship Specialty Start Date End Date Name, MD Martin [address] [place] [address] PCP - General Internal Medicine 02/22/25 documented as of this encounter
--- OUTSIDE RECORDS SUMMARY | 2025-06-07 18:00 | XMS_ITS | Clinical Summary ---
Author Organization [employer] Address 75 [facility] 7t [place] [address] Care Team Providers Care Aging Department Supervisor Name Role Phone Name, Martin WHITMORE Primary Care Provider [phone] Allergies No known active allergies Medications Blood Pressure kit Check BP daily 1 kit 03/14/20 25 Active carBAMazepine (TEGretol) 100 MG chewable tablet Chew 1 tablet (100 mg) 3 times daily. 90 tablet 11 05/23/2025 12:33 PM EST 03/29/20 25 026 Active loratadine (Claritin) 10 MG tablet Take 1 tablet (10 mg) by mouth Once per day. 30 tablet 11 06/07/2025 12:06 PM EST 03/29/20 25 026 Active PHENobarbital 100 MG tablet TAKE 1 TABLET BY MOUTH AT BEDTIME 30 tablet 05/12/2025 12:09 PM EST 05/10/20 25 Active Diclofenac Sodium 1 % gelIndications :Right arm pain Apply topically tid prn pain 50 g 1 06/07/20 25 Active PHENobarbital 100 MG tablet TAKE 1 TABLET BY MOUTH AT BEDTIME 30 tablet 03/31/20 25 025 Discontinued Active Problems Problem Noted Date Diagnosed Date Intellectual disability 02/22/2025 Assessment & Plan (03/03/2025 11:48 AM EDT): Baseline, minimal communication. Seizure disorder (CMS/HCC) 02/22/2025 Assessment & Plan (03/03/2025 11:48 AM EDT): Moved here from [place], orlin adamson have current Neurologist. -referred to neurology 03/03/25 Orders: Referral to Neurology; Future Encounters Date Type Department Care Team Description 06/07/2025 2:20 PM EST Office Visit [address] [address] Irasema Augustin MD Urine malodor (Primary Dx); Right arm pain 06/07/2025 Results Follow-Up [address] [address] Irasema Augustin MD XR Humerus Right 06/07/2025 Travel 06/02/[address] [address] Martin Burch MD Med Refill 05/09/[address] [address] Martin Burch MD 04/14/[address] [address] Martin Burch MD Med Refill 03/30/[address] [address] Martin Burch MD 03/29/2025 3:45 PM EDT Office Visit [address] [address] Martin Burch MD Seizure disorder ([facility]) (HCC) (Primary Dx); Axillary mass, right; Tinea corporis; Encounter for immunization 03/29/2025 Travel 03/28/2025 8:40 AM EDT Office Visit [address] [address] Taylor Merino NP Dermatitis associated with moisture (Primary Dx); Onychomycosis; Elevated blood pressure reading 03/28/[address] [address] Martin Burch MD chart prep 03/28/2025 Travel 03/14/2025 8:40 AM EDT Office Visit [address] [address] Donna Hassan MD Seizure disorder ([facility]) (Primary Dx); Elevated BP without diagnosis of hypertension; Coarse tremors 03/14/2025 Travel 03/11/2025 Telephone [facility] MEDICINE [address] [place] [address] Martin Burch MD Insurance Issue (Called pt about insurance from [place] and explained in order to be seen on Friday Pt had to bring in document stating [place] insurance was cancelled and or to bring in new health insurance cards. PT sister explained she cannot make it to Friday03/14/2025 Appointment and would like to reschedule. I let her know that we wont be able to book another appointment until we have proof of new insurance. ) 03/11/2025 Telephone [facility] MED[facility]INE [address] [place] [phone] Naya Esposito FNP Chart Prep 03/09/[address] [address] Martin Burch MD ER Follow-up 03/08/2025 Telephone [facility] [address] [place] [address] Martin Burch MD Medication Question from Last 3 Months Immunizations Immunization Administration [...] oz) 06/07/2025 1:09 P M EST Height 167.6 cm (5' 6 ) 03/29/2025 3:32 PM EDT Body Mass Index 35.06 03/29/2025 3:32 PM EDT Plan of Treatment Upcoming Encounters Date Type Department Care Team (Late st Contact Info) Description 06/27/2025 10:45 AM EST Office Visit [facility] MED[facility]INE [address] [place] [address] Name, MD Martin [address] [place] [address] Health Maintenance Due Date Last Done Comments [...] 06/07/2025 2:09 PM EST Right arm pain TSH W/REFLEX TO FT4 Routine 04/14/2025 8 :37 AM EDT CARBAMAZEPINE, TOTAL Routine 03/31/2025 9:38 AM EDT Seizure disorder (CMS/HCC) (HCC) CBC Routine 03/31/2025 9:38 AM EDT Syncope, unspecified syncope type BASIC METABOLIC PANEL Routine 03/31/2025 9:38 AM EDT Syncope, unspecified syncope type MR BRAIN WO CONTRAST Routine 03/18/2025 11:15 AM EDT Tremor Exophthalmos, constant, right BI MAMMOGRAM DIAGNOSTIC TOMOSYNTHESIS BILATERAL Routine 02/25/2025 9:57 AM EDT Axillary mass, right from Last 3 Months or Most Recently Relevant to Health Maintenance Results * XR Humerus Right (06/07/2025 2:09 PM EST) Anatomical Region Laterality Modality Upper Extremities, Humerus Right Radio graphic Imaging 06/07/2025 2:09 PM EST Narrative 06/07/2025 3:04 PM EST [address] [address] XRay Report Signed Patient: Maria M Pimentel R#: [id number] : 1970 Acct:[id number] Age/Sex: 54 / F ADM Date: 06/07/25 Loc: HO.HHCX Attending Dr: Irasema Augustin MD Ordering Physician: Irasema Augustin MD Date of Service: 06/07/25 Procedure(s): XR humerus RT Accession Number(s): [id number] cc: Irasema Augustin MD Reason for Exam: [...] Milad Benítez MD 06/07/2025 03:01 PM EST RP Dictated By: Milad Beníetz MD Signed By: <Electronically signed by Milad Benítez MD in OV> 06/07/25 1501 DD/ 1409 TD/TT: 06/07/25 1438 Dat Instructor: Procedure Note Donotuseinterpreter, Image - 06/07/2025 [facility] [address] [place] [address] XRay Report Signed Patient: Lorneza Pimentel R#: [id number] : 1970Acct:[id number] Age/Sex: 54 / FADM Date: 06/07/25 Loc: HO.HHCX Attending Dr: Irasema Augustin MD Ordering Physician: Irasema Augustin MD Date of Service: 06/07/25 Procedure(s): XR humerus RT Accession Number(s): [id number] cc: Irasema Augustin MD Reason for Exam: [...] by: Milad Benítez MD 06/07/2025 03:01 PM [facility] Dictated By: Milad Benítez MD Signed By: <Electronically signed by Milad Benítez MD in OV> 06/07/25 1501 DD/ 1409 TD/TT: 06/07/25 143 Dat Instructor: us Irasema Augustin MD IMG XR PROCEDURES Edited R esult - Final * TSH with Reflex to Free T4 (04/14/2025 8:37 AM EDT) TSH reflex Free T4 2.32 0.32 - 4.0 uIU/mL [facility] 04/14/2025 8:37 AM EDT 04/14/2025 8:37 AM EDT us Generic External Data Provider LAB BLOOD ORDERAB LES Final Result [facility] [address] [place] [address] [phone] * (ABNORMAL) CBC (03/31/2025 9:38 AM EDT) White Blood Count 6.2 4.8 - 10.8 X10*3/uL [facility] Red Blood Count 4.34 4.20 - 5.50 X10*6/uL [facility] Hemoglobin 13.9 12.0 - 16.0 g/dl [facility] Hematocrit 42.7 37.0 - 47.0 % [facility] Mean Corpuscular Volume 98.4(H) 80.0 - 98.0 fL [facility] Mean Corpuscular Hemoglobin 32.0 27.0 - 33.0 pg [facility] Mean Corpuscular HGB Conc 32.6 31.0 - 35.0 g/dl [facility] Red Cell Distribution Width 12.7 11.0 - 16.0 % [facility] Platelet Count 248 160 - 400 X10*3/uL [facility] Mean Platelet Volume 11.0 9.4 - 12.3 fL [facility] NRBC Pct Auto 0.0 0.0 - 0.2 /100WBC [facility] NRBC Abs Auto 0.000 0.0 - 0.012 X10*3/uL [facility] Blood Venous blood specimen / Unknown 03/31/2025 9:38 AM EDT 03/31/2025 11:25 AM EDT us Irasema Augustin MD LAB BLOOD ORDERABLES Final Result Performing Organization Address City/[facility]/ZIP Co de Phone Number [facility] [address] [place] [address] [phone] * (ABNORMAL) Carbamazepine, Total (03/31/2025 9:38 AM EDT) Carbamazepine Tegretol 4.8(L) 5.0 - 12.0 mcg/mL [facility] Blood Venous blood specimen / Unknown 03/31/2025 9:38 AM EDT 03/31/2025 11:03 AM EDT Martin Burch MD LAB BLOOD ORDERABLES Final Resul t Performing Organization Address City/[facility]/ZIP Co de Phone Number [facility] [address] [place] [phone] * (ABNORMAL) Basic Metabolic Panel (03/31/2025 9:38 AM EDT) Pathologist [facility] Sodium 141 135 - 145 mmol/L [facility] Potassium 4.2 3.3 - 5.1 mmol/L [facility] Chloride 103 96 - 108 mmol/L [facility] Carbon Dioxide 32(H) 22 - 29 mmol/L [facility] Anion Gap 10(L) 12 - 20 [facility] Urea Nitrogen (BUN) 10 9 - 16 mg/dL [facility] Creatinine, Serum 0.66 0.5 - 1.4 mg/dL [facility] Estimated Glomerular Filt Rate >60 [facility] Comment:Chronic Kidney Disea se: Estimated GFR < 60 mL/min/1.72i3Aiclik Kidney Disease: Estimated GFR < 15 mL/min/1.73m2 Glucose 88 60 - 115 mg/dL [facility] Calcium 9.2 8.4 - 10.2 mg/dL [facility] Blood Venous blood specimen / Unknown 03/31/2025 9:38 AM EDT 03/31/2025 11:09 AM EDT Irasema Augustin MD LAB BLOOD ORDERABLES Final Result Performing Organization Address City/[facility]/ZIP Co de Phone Number [facility] [address] [place] [phone] * MR Brain w/o Contrast (03/18/2025 11:15 AM EDT) Anatomical Region Laterality Modality Brain Magnetic Resonan ce 03/18/2025 11:1 5 AM EDT Narrative 03/18/2025 11:16 AM EDT [address] [address] Magnetic Resonance Report Signed Patient: Maria M Pimentel R#: [id number] : 1970 Acct:[id number] Age/Sex: 54 / F ADM Date: 03/17/25 Loc: HO.MRI Attending Dr: Irasema Augustin MD Ordering Physician: Irasema Augustin MD Date of Service: 03/17/25 Procedure(s): MR head/brain wo con Accession Number(s): [id number] cc: Irasema Augustin MD; Name,Martin WHITMORE Reason [...] 03/18/25 1116 DD/ 1115 TD/TT: 03/18/25 1115 Dat Instructor: Procedure Note Donotuseinterpreter, Image - 03/18/[address] [address] Magnetic Resonance Report Signed Patient: Lorenza Pimentel R#: [id number] : 1970Acct:[id number] Age/Sex: 54 / FADM Date: 03/17/25 Loc: HO.MRI Attending Dr: Irasema Augustin MD Ordering Physician: Irasema Augustin MD Date of Service: 03/17/25 Procedure(s): MR head/brain wo con Accession Number(s): [id number] cc: Irasema Augustin MD; Name,Martin WHITMORE Reason [...] 03/18/25 1116 DD/ 1115 TD/TT: 03/18/25 1115 Dat Instructor: Irasema Augustin MD IMG MRI PROCEDURES Final R esult * BI Mammogram Diagnostic Tomosynthesis Bilateral (02/25/2025 9:57 AM EDT) Anatomical Region Laterality Modality Breast Bilateral Mammography 02/25/2025 9:57 AM EDT Narrative 02/25/2025 1:17 PM EDT [facility] [address] [place], [place] [address] Mammography Report Signed with Johnny Patient: Maria M Pimentel Omi#: [id number] : 1970 Acct:[id number] Age/Sex: 54 / F ADM Date: 02/25/25 Loc: HO.MAMMO Attending Dr: Martin Burch MD Ordering Physician: Martin Burch MD Results: 1Negative Date of Service: 02/25/25 Follow Up: 1 Year From Orig [facility] Mammogram Procedure(s): MM tomosynthesis diagnostic BI Accession Number(s): [id number] cc: Name,Martin WHITMORE Reason For Exam: Right axillary mass ADDENDUM [...] Charli Henderson MD 02/25/2025 01:15 PM EDT Workstation: [employer] Dictated By: Charli Henderson MD Signed By: <Electronically signed by Charli Henderson MD in OV> 02/25/25 1315 DD/ 0957 TD/TT: 02/25/25 1014 Dat Instructor: Procedure Note Donotuseinterpreter, Image - 03/08/20[facility] [address] [place] [address] Mammography Report Signed with Addenda Patient: Lorenza Pimentel R#: [id number] : 1970Acct:[id number] Age/Sex: 54 / FADM Date: 02/25/25 Loc: MAMMO Attending Dr: Martin Burch MD Ordering Physician: Martin Burchesults: 1Negative Date of Service: 02/25/25Follow Up: 1 Year From Orig inal Mammogram Procedure(s): MM tomosynthesis diagnostic BI Accession Number(s): [id number] cc: Martin Burch MD Reason For Exam: [...] Charli Henderson MD 02/25/2025 01:15 PM EDT Workstation: [employer] Dictated By: Charli Henderson MD Signed By: <Electronically signed by Charli Henderson MD in OV> 02/25/25 1315 DD/ 0957 TD/TT: 02/25/25 1014 Dat Instructor: Martin Burch MD IMG BI PROCEDURES Edited Result - Final from Last 3 Months or Most Recently Relevant to Health Maintenance Insurance [facility] < [address] [place] [phone] Care Teams Aging Department Supervisor Relationship Specialty Start Date End Date Name, MD Martin [address] [place] [address] PCP - General Internal Medicine 02/22/25
[2025-06-07 22:37] LABS: Bacterial Vaginosis PCR NEGATIVE (Negative); Candida Group PCR NOT DETECTED (Not Detect); Candida glab krusei PCR NOT DETECTED (Not Detect); Trichomonas vaginalis PCR NOT DETECTED (Not Detect)
== END 2025-06-07 13:48 | disposition home or self-care (01) ==
LOC: HO.HHCX 13:47
PROVIDERS: Visit Provider Family Medicine
DX: R82.90 Unspecified abnormal findings in urine (principal); M79.601 Pain in right arm; Z20.2 Contact with and (suspected) exposure to infections with a predominantly sexual mode of transmission
CPT/HCPCS: 73060; 81515

== ENCOUNTER → 2025-06-07 13:49 | Outpatient (BNV) | payer OTHER, SELFPAY | PROVIDERS: Visit Provider Radiology Diagnostic Radiology | DX: M79.621 Pain in right upper arm (principal) | CPT/HCPCS: 73060 ==

== ENCOUNTER 2025-06-08 08:12 | Outpatient (REF) | payer OTHER, SELFPAY ==
--- OUTSIDE RECORDS SUMMARY | 2025-06-06 10:15 | XMS_ITS | Encounter Summary ---
Author Organization [facility] Address [address] [place] [address] Care Team Providers Care Plastic Maker Name Role Phone Unavailable Primary Care Provider Unavailabl e Reason for Visit * Reason Comments Consult Tinea unguium * Consultation (Routine) - Authorized Specialty Diagnoses / Procedures Referred By Contact Referred To Contact Podiatry / Orthopaedic Surgery Diagnoses Tinea unguium Taylor Merino NP 230 [facility] 1 [place] [address] Phone: tel: fax: Pablo Higgins DPM [address] [address] Phone: tel: fax: Referral ID Status Reason Start Date Expiration Date Visits Requested Visits Authorized [id number] Authorized Specialty Services Required 03/31/2025 03/31/2026 1 1 Encounter Details Date Type Department Care Team ([facility] Contact Info) Description 06/06/2025 10:15 AM EST Office Visit Orthopedic Surgery - [place] [address] [address] Pablo Higgins DPM [address] [address] Dermatophytosis of nail (Primary Dx); [...] seen by primary care 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 [facility] 100,000 unit/gram powder APPLY TO [...]
--- OUTSIDE RECORDS SUMMARY | 2025-06-07 14:20 | XMS_ITS | Encounter Summary ---
Author Organization [employer] Address [address] [facility] 7t [place] [address] Care Team Providers Care Water Resource Consultant Name Role Phone Name, Martin WHITMORE Primary Care Provider [phone] Reason for Referral * Consultation (Routine) - Closed Specialty Diagnoses / Procedures Referred By Contac t Referred To Contact Physical Therapy Diagnoses Right arm pain Irasema Augustin MD 230 [place] [address] Phone: tel: fax: [facility] Physical Therapy [address] [place] [address] Phone: tel: fax: Referral ID Status Reason Start Date Expiration Date V isits Requested Visits Authorized [id number] Closed Specialty Services Required 06/07/2025 06/07/2026 1 1 Encounter Details Date Type Department Care Team (Late st Contact Info) Description 06/07/2025 2:20 PM EST Office Visit [facility] 230 [place], [place] [phone] Irasema Augustin MD 230 [place], [place] [phone] Urine malodor (Primary Dx); Right arm pain [...] EST To schedule your physical therapy at [facility] please call [phone]. Para programar zhao therapia physica m??dica en [facility], por favor justin britt [phone]. documented in this encounter Progress Notes * [...] tenderness over lateral right bicep. Strenth of interlocker and hand 5/5/ Sensation intackt medial, radial [...] Description 06/27/2025 10:45 AM EST Office Visit [facility] [address] [place] [address] Name, MD Martin [address] [place] [address] Scheduled Orders Name Type Priority Associated Diagnoses [...] PM EST Narrative 06/07/2025 3:04 PM EST [facility] 230 [place] [address] XRay Report Signed Patient: Maria M Pimentel R#: [id number] : 1970 Acct:[id number] Age/Sex: 54 / F ADM Date: 06/07/25 Loc: NILDAX Attending Dr: Irasema Augustin MD Ordering Physician: Irasema Augustin MD Date of Service: 06/07/25 Procedure(s): XR humerus RT Accession Number(s): [id number] cc: Irasema Augustin MD Reason for Exam: [...] by: Milad Benítez MD 06/07/2025 03:01 PM [facility] Dictated By: Milad Benítez MD Signed By: <Electronically signed by Milad Benítez MD in OV> 06/07/25 1501 DD/ 1409 TD/TT: 06/07/25 1438 Packing Shed Supervisor: Procedure Note Donotuseinterpreter, Image - 06/07/[address] [address] XRay Report Signed Patient: Lorenza Pimentel R#: [id number] : 1970Acct:[id number] Age/Sex: 54 / FADM Date: 06/07/25 Loc: CX Attending Dr: Irasema Augustin MD Ordering Physician: Irasema Augustin MD Date of Service: 06/07/25 Procedure(s): XR humerus RT Accession Number(s): [id number] cc: Irasema Augustin MD Reason for Exam: [...] 06/07/25 1501 DD/ 1409 TD/TT: 06/07/25 1438 Packing Shed Supervisor: Irasema Augustin MD IMG XR PROCEDURES Edited R esult - Final documented in this encounter Visit Diagnoses Diagnosis Urine malodor- Primary Right arm pain Pain in soft tissues of limb documented in this encounter Care Teams Water Resource Consultant Relationship Specialty Start Date End Date Name, MD Martin 230 [place] [address] PCP - General Internal Medicine 02/22/25 documented as of this encounter
--- OUTSIDE RECORDS SUMMARY | 2025-06-08 08:19 | XMS_ITS | Encounter Summary ---
Author Organization [employer] Address [address] [facility] 7t [place] [address] Care Team Providers Care Foreign Legal Consultant Name Role Phone Name, Martin WHITMORE Primary Care Provider [phone] Reason for Visit * Reason Onset Date Comments Med Refill 06/02/2025 Encounter Details Date Type Department Care Team ([facility] st Contact Info) Description 06/02/2025 Telephone [facility] [address] [place] [address] Name, MD Martin [address] [place] [address] Med Refill Social History Tobacco Use Types [...] t he electric, gas, oil or water [employer] threatened to shut off services in your [...] 7:58 AM EST Script was sent to [facility] on 03/29/25 #30 with 11 refills. * Telephone Encounter - Alix Marsh - 06/02/2025 4:51 PM EST TC from pt requesting medication refill. Medications needing refill : oratadine (Claritin) 10 MG tablet To be sent to: [facility] - [place], [place] - [address] [place] [address] documented in this encounter Plan of Treatment Upcoming Encounters Date Type Department Care Team (Late st Contact Info) Description 06/27/2025 10:45 AM EST Office Visit [facility] [address] [place] [address] Name, MD Martin [address] [place] [address] documented as of this encounter Visit Diagnoses Not on filedocumented in this encounter Care Teams Foreign Legal Consultant Relationship Specialty Start Date End Date Name, MD Martin [address] [place] [address] PCP - General Internal Medicine 02/22/25 documented as of this encounter
--- OUTSIDE RECORDS SUMMARY | 2025-06-08 08:19 | XMS_ITS | Clinical Summary ---
Author Organization [facility] Address [address] [place] [address] Phone Care Team Providers Care Central Supply Manager Name Role Phone Unavailable Primary Care Provider [...] 10:15 AM EST Office Visit Orthopedic Surgery [facility] [address] [phone] Pablo Higgins, DPM Dermatophytosis of nail (Primary [...] Insurance MEDICARE MEDICAID - [place] [facility] Member Subscriber Plan / Payer (Ef fective 2025-Present) Name:Maria M [place] Relation to Subscriber:Self Name:Maria M [place] Payer ID:[id number] Group ID:Not on file Type:Not on file Address: [address] [place] [phone]
--- OUTSIDE RECORDS SUMMARY | 2025-06-08 08:19 | XMS_ITS | Clinical Summary ---
Author Organization [employer] Address [address] [facility] 7[address] [place] [address] Care Team Providers Care Intranet Developer Name Role Phone Name, Martin WHITMORE Primary Care Provider [phone] Allergies No known active allergies Medications Blood [...] Description 06/07/2025 2:20 PM EST Office Visit [address] [address] Irasema Augustin MD Urine malodor (Primary Dx); Right arm pain 06/07/2025 Results Follow-Up [address] [address] Irasema Augustin MD XR Humerus Right 06/07/2025 Travel 06/02/[address] [address] Martin Burch MD Med Refill 05/09/[address] [address] Martin Burch MD 04/14/[address] [address] Martin Burch MD Med Refill 03/30/[address] [address] Martin Burch MD 03/29/2025 3:45 PM EDT Office Visit [address] [address] Martin Burch MD Seizure disorder ([facility]) (HCC) (Primary Dx); Axillary mass, right; Tinea corporis; Encounter for immunization 03/29/2025 Travel 03/28/2025 8:40 AM EDT Office Visit [address] [address] Taylor Merino NP Dermatitis associated with moisture (Primary Dx); Onychomycosis; Elevated blood pressure reading 03/28/[address] [address] Martin Burch MD chart prep 03/28/2025 Travel 03/14/2025 8:40 AM EDT Office Visit [address] [address] Donna Hassan MD Seizure disorder ([facility]) (Primary Dx); Elevated BP without diagnosis of hypertension; Coarse tremors 03/14/2025 Travel 03/11/2025 Telephone [facility] [address] [place] [address] Martin Burch MD Insurance Issue (Called pt about insurance from [place] and explained in order to be seen on Friday Pt had to bring in document stating [place] insurance was [place] and or to bring in new health insurance cards. PT sister explained she cannot make it to Friday03/14/2025 Appointment and would like to reschedule. I let her know that we wont be able to book another appointment until we have proof of new insurance. ) 03/11/2025 Telephone [facility] [address] [place], [place] [phone] Naya Esposito FNP Chart Prep 03/09/2025 Telephone [facility] [address] [place] [address] NameMartin MD ER Follow-up from Last 3 Months Immunizations Immunization Administration [...] Description 06/27/2025 10:45 AM EST Office Visit [facility] [address] [place] [phone] Name, MD Martin [address] [place] [phone] Health Maintenance Due Date Last Done Comments [...] 06/07/2025 2:09 PM EST Right arm pain BACTERIAL VAGINOSIS PANEL Routine 06/07/2025 12:00 AM EST TSH W/REFLEX TO FT4 Routine 04/14/2025 8 [...] PM EST Narrative 06/07/2025 3:04 PM EST [address] [address] XRay Report Signed Patient: Maria M Pimentel R#: [id number] : 1970 Acct:[id number] Age/Sex: 54 / F ADM Date: 06/07/25 Loc: .HHCX Attending Dr: Irasema Augustin MD Ordering Physician: Irasema Augustin MD Date of Service: 06/07/25 Procedure(s): XR humerus RT Accession Number(s): [id number] cc: Irasema Augustin MD Reason for Exam: [...] 03:01 PM EST RP Dictated By: Milad Benítez MD Signed By: <Electronically signed by Milad Benítez MD in OV> 06/07/25 1501 DD/ 1409 TD/TT: 06/07/25 1438 Human Factors Advisor Lead: Procedure Note Donotuseinterpreter, Image - 06/07/2025 [facility] [address] [place] [address] XRay Report Signed Patient: Lorenza Pimentel R#: [id number] : 1970Acct:[id number] Age/Sex: 54 / FADM Date: 06/07/25 Loc: HO.HHCX Attending Dr: Irasema Augustin MD Ordering Physician: Irasema Augustin MD Date of Service: 06/07/25 Procedure(s): XR humerus RT Accession Number(s): [id number] cc: Irasema Augustin MD Reason for Exam: [...] 06/07/25 1501 DD/ 1409 TD/TT: 06/07/25 1438 Human Factors Advisor Lead: us Irasema Augustin MD IMG XR PROCEDURES Edited R esult - Final * Bacterial Vaginosis (06/07/2025 12:00 AM EST) TRICHOMONAS VAGINALIS DETECTION BY PCR NOT DETECTED Not Detect [facility] BACTERIAL VAGINOSIS DETECTION BY PCR NEGATIVE Negative [facility] Comment:The BV organism targ ets of the Xpert Xpress MVP test can becommensal in women; Xpert Xpress MVP positive results forbacterial vaginosis should be considered in conjunction withother clinical and patient information to determine thedisease status. Organisms that are not detected by the XpertXpress MVP test have also been reported to be associatedwith BV and aerobic vaginitis.The Xpert Xpress MVP test performance has not been evaluatedin patients under the age of 14. SABRA GROUP DETECTION BY PCR NOT DETECTED Not Detect [facility] Sabra glab krusei PCR NOT DETECTED Not Detect [facility] 06/07/2025 06/07/2025 Irasema Augustin MD LAB MICROBIOLOGY - GENERAL ORDERABLES Final Result Performing Organization Address [facility]/ZIP Co de Phone Number [facility] [address] [place] [phone] * TSH with Reflex to Free T4 (04/14/2025 8:37 AM EDT) TSH reflex Free T4 2.32 0.32 - 4.0 uIU/mL [facility] 04/14/2025 8:37 AM EDT 04/14/2025 8:37 AM EDT us Generic External Data Provider LAB BLOOD ORDERAB LES Final Result Performing Organization Address [facility] Co de Phone Number [facility] [address] [place] [phone] * (ABNORMAL) CBC (03/31/2025 9:38 AM EDT) White Blood Count 6.2 4.8 - 10.8 X10*3/uL [facility] Red Blood Count 4.34 4.20 - 5.50 X10*6/uL [facility] Hemoglobin 13.9 12.0 - 16.0 g/dl [facility] Hematocrit 42.7 37.0 - 47.0 % [facility] Mean Corpuscular Volume 98.4(H) 80.0 - 98.0 fL [facility] Mean Corpuscular Hemoglobin 32.0 27.0 - 33.0 pg [facility] Mean Corpuscular HGB Conc 32.6 31.0 - 35.0 g/dl [facility] Red Cell Distribution Width 12.7 11.0 - 16.0 % [facility] Platelet Count 248 160 - 400 X10*3/uL [facility] Mean Platelet Volume 11.0 9.4 - 12.3 fL [facility] NRBC Pct Auto 0.0 0.0 - 0.2 /100WBC [facility] NRBC Abs Auto 0.000 0.0 - 0.012 X10*3/uL [facility] Blood Venous blood specimen / Unknown 03/31/2025 9:38 AM EDT 03/31/2025 11:25 AM EDT Irasema Augustin MD LAB BLOOD ORDERABLES Final Result Performing Organization Address [facility]/ZIP Co de Phone Number [facility] [address] [place] [phone] * (ABNORMAL) Carbamazepine, Total (03/31/2025 9:38 AM EDT) Pathologist [facility] Carbamazepine Tegretol 4.8(L) 5.0 - 12.0 mcg/mL [facility] Blood Venous blood specimen / Unknown 03/31/2025 9:38 AM EDT 03/31/2025 11:03 AM EDT Martin Burch MD LAB BLOOD ORDERABLES Final Resul t Performing Organization Address [facility] Co de Phone Number [facility] [address] [place] [phone] * (ABNORMAL) Basic Metabolic Panel (03/31/2025 9:38 AM EDT) Pathologist [facility] Sodium 141 135 - 145 mmol/L [facility] Potassium 4.2 3.3 - 5.1 mmol/L [facility] Chloride 103 96 - 108 mmol/L [facility] Carbon Dioxide 32(H) 22 - 29 mmol/L [facility] Anion Gap 10(L) 12 - 20 [facility] Urea Nitrogen (BUN) 10 9 - 16 mg/dL [facility] Creatinine, Serum 0.66 0.5 - 1.4 mg/dL [facility] Estimated Glomerular Filt Rate >60 [facility] Comment:Chronic Kidney Disea se: Estimated GFR < 60 mL/min/1.18r3Fdmebh Kidney Disease: Estimated GFR < 15 mL/min/1.73m2 Glucose 88 60 - 115 mg/dL [facility] Calcium 9.2 8.4 - 10.2 mg/dL [facility] Blood Venous blood specimen / Unknown 03/31/2025 9:38 AM EDT 03/31/2025 11:09 AM EDT Irasema Augustin MD LAB BLOOD ORDERABLES Final Result Performing Organization Address City/State/[facility] Co de Phone Number [facility] [address] [place] [phone] * MR Brain w/o Contrast (03/18/2025 11:15 AM EDT) Anatomical Region Laterality Modality Brain Magnetic Resonan ce 03/18/2025 11:1 5 AM EDT Narrative 03/18/2025 11:16 AM EDT [place] [address] Magnetic Resonance Report Signed Patient: Maria M Pimentel R#: [id number] : 1970 Acct:[id number] Age/Sex: 54 / F ADM Date: 03/17/25 Loc: HO.MRI Attending Dr: Irasema Augustin MD Ordering Physician: Irasema Augustin MD Date of Service: 03/17/25 Procedure(s): MR head/brain wo con Accession Number(s): [id number] cc: Irasema Augustin MD; Name,Martin WHITMORE Reason [...] Victor MD in OV> 03/18/25 1116 DD/ 111 TD/TT: 03/18/25 111 Human Factors Advisor Lead: Procedure Note Donotuseinterpreter, Image - 03/18/2025 [place] [address] Magnetic Resonance Report Signed Patient: Lorenza Pimentel R#: [id number] : 1970Acct:[id number] Age/Sex: 54 / FADM Date: 03/17/25 Loc: HO.MRI Attending Dr: Irasema Augustin MD Ordering Physician: Irasema Augustin MD Date of Service: 03/17/25 Procedure(s): MR head/brain wo con Accession Number(s): [id number] cc: Irasema Augustin MD; Name,Martin WHITMORE Reason [...] 03/18/25 1116 DD/ 1115 TD/TT: 03/18/25 1115 Human Factors Advisor Lead: Irasema Augustin MD IMG MRI PROCEDURES Final R esult * BI Mammogram Diagnostic Tomosynthesis Bilateral (02/25/2025 9:57 AM EDT) Anatomical Region Laterality Modality Breast Bilateral Mammography 02/25/2025 9:57 AM EDT Narrative 02/25/2025 1:17 PM EDT [facility] [address] [place] [address] Mammography Report Signed with Addenda Patient: Maria M Pimentel Omi#: [id number] : 1970 Acct:[id number] Age/Sex: 54 / F ADM Date: 02/25/25 Loc: HO.MAMMO Attending Dr: Martin Burch MD Ordering Physician: Martin Burch MD Results: 1Negative Date of Service: 02/25/25 Follow Up: 1 Year From Orig [facility] Mammogram Procedure(s): MM tomosynthesis diagnostic BI Accession Number(s): [id number] cc: Martin Burch MD Reason For Exam: [...] OV> 02/25/25 1315 DD/ 6 TD/TT: 02/25/25 1014 Human Factors Advisor Lead: Procedure Note Donotuseinterpreter, Image - 03/08/2025 [facility] [address] [place], [place] [address] Mammography Report Signed with Addenda Patient: Lorenza Pimentel R#: [id number] : 1970Acct:[id number] Age/Sex: 54 / FADM Date: 02/25/25 Loc: HO.MAMMO Attending Dr: Martin Burch MD Ordering Physician: Martin Burchesults: 1Negative Date of Service: 02/25/25Follow Up: 1 Year From Orig inal Mammogram Procedure(s): MM tomosynthesis diagnostic BI Accession Number(s): [id number] cc: Martin Burch MD Reason For Exam: [...] 02/25/25 1315 DD/ 0957 TD/TT: 02/25/25 1014 Human Factors Advisor Lead: Martin Name MD [place] BI PROCEDURES Edited Result - Final from Last 3 Months or Most Recently Relevant to Health Maintenance Insurance [facility] CARE < [address] [place] [id number] Care Teams Intranet Developer Relationship Specialty Start Date End Date Name, MD Martin [address] [place] [address] PCP - General Internal Medicine 02/22/25
--- OUTSIDE RECORDS SUMMARY | 2025-06-08 08:19 | XMS_ITS | Encounter Summary ---
Author Organization [employer] Address [address] [facility] [address] [place] [address] Care Team Providers Care Delivery Department Supervisor Name Role Phone Name, Martin WHITMORE Primary Care Provider [phone] Encounter Details Date Type Department Care Team ([facility] st Contact Info) Description 06/07/2025 Results Follow-Up [facility] [address] [place] [address] Irasema Augustin MD [address] [place] [address] XR Humerus Right Social History Tobacco Use [...] Description 06/27/2025 10:45 AM EST Office Visit [facility] [address] [place] [phone] Martin Burch MD [address] [place] [phone] documented as of this encounter Visit Diagnoses Not on filedocumented in this encounter Care Teams Delivery Department Supervisor Relationship Specialty Start Date End Date Martin Burch MD [address] [place] [phone] PCP - General Internal Medicine 02/22/25 documented as of this encounter
--- OUTSIDE RECORDS SUMMARY | 2025-06-08 08:19 | XMS_ITS | Encounter Summary ---
Author Organization [employer] Address [address] [facility] [address] [place] [address] Care Team Providers Care Manufacture Specialist Name Role Phone Name, Martin WHITMORE Primary Care Provider Encounter Details Date Type Department Care Team (Latest Contact Info) Description 06/07/2025 Travel Social History Tobacco Use Types Packs/Day Years Used Date Smoking Tobacco: Never Smokeless Tobacco: Never Alcohol Use Standard Drinks/Week Comments Never 0 (1 standard drink = 0.6 oz pur e alcohol) Housing Stability Answer Date Recorded What is your housing situation today? I have blancasurekha goodman 03/29/[address] you [...] Description 06/27/2025 10:45 AM EST Office Visit [facility] [address] [place] [phone] Name, MD Martin [address] [place] [phone] documented as of this encounter Visit Diagnoses Not on filedocumented in this encounter Care Teams Manufacture Specialist Relationship Specialty Start Date End Date Name, MD Martin [address] [place] [phone] PCP - General Internal Medicine 02/22/25 documented as of this encounter
[2025-06-08 11:31] LABS: Appearance Urine Cloudy; Glucose Urine UA Negative (Negative); PH 6.5 (5.0-9.0); Specific Gravity - Urine 1.010 (1.005-1.025)
== END 2025-06-08 08:13 | disposition home or self-care (01) ==
LOC: HO.HHCL 08:12
PROVIDERS: PCP Family Medicine; Visit Provider Family Medicine
DX: R82.90 Unspecified abnormal findings in urine (principal)
CPT/HCPCS: 81001